=== PATIENT | male | born 1955 | race Caucasian/White ===

== ENCOUNTER 2021-12-24 14:52 | Inpatient (IN) ==
--- NOTE | 2021-12-24 15:03 | DR.ABDMALE ---
HPI Time seen Time Seen by Provider: 12/24/21 15:02 Complaint Chief Complaint Doctors Comments: 66 y/o male , currently an inmate, brought in for evaluation. Has had recurrent abdominal pain, with nausea and vomiting, over the past 4-5 days. Pain is sharp, cramping, diffuse of the abdomen, does not r adiate. Pain is intermittent. Nothnig makes it better, nothing makes it worse. Having nausea, with vomiting. Moved bowels small amount yesterday. No fever, having some chills. Denies URI symptoms, no urinary complaints. + h/o prior bowel surgeries with subsequent h/o bowel obstructions. COVID-19 Coronavirus risk:travel/contact w/high risk person: No Has patient experienced Coronavirus symptoms: No Reviewed Nurses Notes Review: Yes Source History provided by:: patient Mode of arrival Mode of Arrival: Wheelchair PMH PM Past Medical History: No Past Surgical History Comment: Hernia repair Family History History of Family Medical Conditions: No Social History Does patient currently use any type of tobacco product: No Does any household member use tobacco: No Do you use any recreational Drugs:: No Travel Risk Coronavirus risk:travel/contact w/high risk person: No Has patient experienced Coronavirus symptoms: No ROS Review of Systems Constitutional: Chills Eyes: No Symptoms Reported ENTM: No Symptoms Reported Respiratoy: No Symptoms Reported Cardiovascular: No Symptoms Reported Gastrointestinal/Abdominal: Abdominal Pain, Nausea and Vomiting Genitourinary: No Symptoms Reported Neurological: No Symptoms Reported Musculoskeletal: No Symptoms Reported Integumentary: No Symptoms Reported Hematologic/Lymphatic: No Symptoms Reported Psychiatric: No Symptoms Reported All Other Systems: Reviewed and Negative PE Vital Signs Vital Signs: Temp Pulse Resp BP Pulse Ox 12/24/21 17:00 98.2 F 87 17 145/84 99 12/24/21 15:28 18 12/24/21 14:55 98.2 F 98 H 18 166/99 98 General Limitations: No Limitations General Appearance: Alert and In No Apparent Distress Head Head Exam: Normal Inspection Eyes Eye exam: Normal Appearance, PERRL and EOMI ENT ENT Exam: Normal Exam and Mucous Membranes Moist Neck Neck Exam: Normal Inspection and Full ROM Chest Chest Inspection: Normal Inspection Respiratory Respiratory Exam: Normal Lung Sounds Bilat; negative Accessory Muscle Use and Respiratory Distress Respiratory Exam: Bilateral: Clear to Auscultation Cardiovascular Cardiovascular Exam: Regular Rate, Normal Rhythm and Normal Heart Sounds Abdominal Exam Abdominal Exam: Soft, Distention and Tenderness (LLQ > all other quadrants. + degree of rebound and guarding of LLQ. + increased tympany to percussion.) Back Back Exam: Normal Inspection Extremeties Extremities Exam: Normal Inspection, Full ROM and Tenderness; negative Edema Neurologic Neurological Exam: Alert, Oriented X3 and CN II-XII Intact Psychiatric Psychiatric Exam: Normal Affect Skin Skin Exam: Warm and Dry MDM Differential Diagnosis Differential Diagnosis: Appendicitis, Bowel Obstruction, Diverticular disease and Ischemic Bowel Other differential diagnosis: perforated viscus COURSE Treatment Treatment: Pt with abdominal pain, N/V. Exam concerning for possible SBO, perforation and/or diverticular disease. 1749 - Labs acceptable. CT of the abd/pelvis with distended loops of bowel. Presentation c/w SBO. Will admit to general surgery, Dr Mortensen. Will place NG tube to decompress bowel. ROR Labs Reviewed Laboratory Results Reviewed?: Yes Result Diagrams: 12/24/21 15:10 12/24/21 15:10 Laboratory: WBC 7.5 X10^3/uL (3.6-10.0) 12/24/21 15:10 RBC 5.43 X10^6/uL (4.7-6.0) 12/24/21 15:10 Hgb 15.8 g/dL (13.5-18.0) 12/24/21 15:10 Hct 47.6 % (42.0-54.0) 12/24/21 15:10 MCV 87.7 fL (80.0-100.0) 12/24/21 15:10 MCH 29.1 pg (27.0-34.0) 12/24/21 15:10 MCHC 33.2 g/dL (33.0-35.0) 12/24/21 15:10 RDW 14.6 % (11.6-16.5) 12/24/21 15:10 Plt Count 357 X10^3/uL (150.0-450.0) 12/24/21 15:10 MPV 7.4 fL (7.4-11.0) 12/24/21 15:10 Neut % (Auto) 59.2 % (42.0-75.0) 12/24/21 15:10 Lymph % (Auto) 28.7 % (21.0-51.0) 12/24/21 15:10 [place] % (Auto) 11.1 % (0.0-13.0) 12/24/21 15:10 Eos % (Auto) 0.8 % (0.9-2.9) L 12/24/21 15:10 Baso % (Auto) 0.2 % (0.2-1.0) 12/24/21 15:10 Neut # (Auto) 4.4 x10^3/uL (2.2-4.8) 12/24/21 15:10 Lymph # (Auto) 2.1 X10^3/uL (1.3-2.9) 12/24/21 15:10 [place] # (Auto) 0.8 x10^3/uL (0.3-0.8) 12/24/21 15:10 Eos # (Auto) 0.1 x10^3/uL (0.0-0.2) 12/24/21 15:10 Baso # (Auto) 0.0 X10^3/uL (0.0-0.1) 12/24/21 15:10 Absolute Nucleated RBC 0.1 /100WBC 12/24/21 15:10 Sodium 140 mmol/L (136-145) 12/24/21 15:10 Corrected Sodium 141 mmol/L (136-145) 12/24/21 15:10 Potassium 3.8 mmol/L (3.5-5.1) 12/24/21 15:10 Chloride 102 mmol/L (98-107) 12/24/21 15:10 Carbon Dioxide 27.5 mmol/L (21-32) 12/24/21 15:10 BUN 12 mg/dL (7-18) 12/24/21 15:10 Creatinine 1.12 mg/dL (0.70-1.30) 12/24/21 15:10 Est GFR (MDRD) Af Amer > 60 (>60) 12/24/21 15:10 Est GFR (MDRD) Non-Af > 60 (>60) 12/24/21 15:10 Glucose 133 mg/dL (65-99) H 12/24/21 15:10 Calcium 8.5 mg/dL (8.5-10.1) 12/24/21 15:10 Corrected Calcium TNP 12/24/21 15:10 Total Bilirubin 0.60 mg/dL (0.2-1.0) 12/24/21 15:10 AST 28 Units/L (15-37) 12/24/21 15:10 ALT 74 Units/L (12-78) 12/24/21 15:10 Alkaline Phosphatase 94 Units/L (46-116) 12/24/21 15:10 Total Protein 8.1 g/dL (6.4-8.2) 12/24/21 15:10 Albumin 3.8 g/dL (3.4-5.0) 12/24/21 15:10 Globulin 4.3 g/dL (2.5-4.5) 12/24/21 15:10 Albumin/Globulin Ratio 0.9 Ratio (1.1-2.1) L 12/24/21 15:10 Lipase 56 Units/L (73-393) L 12/24/21 15:10 Specimen Type Clean catch urine 12/24/21 17:28 Urine Color Yellow (YELLOW) 12/24/21 17:28 Urine Appearance Clear (CLEAR) 12/24/21 17:28 Urine pH 6.0 (5.0 - 8.0) 12/24/21 17:28 Ur Specific [place] 1.020 (1.000-1.030) 12/24/21 17:28 Urine Protein 2+ (NEGATIVE) 12/24/21 17:28 Urine Glucose (UA) Negative (NEGATIVE) 12/24/21 17:28 Urine Ketones 1+ (NEGATIVE) 12/24/21 17:28 Urine Occult Blood 1+ (NEGATIVE) 12/24/21 17:28 Urine Nitrite Negative (NEGATIVE) 12/24/21 17:28 Urine Bilirubin Negative (NEGATIVE) 12/24/21 17:28 Urine Urobilinogen Normal (NORMAL) 12/24/21 17:28 Ur Leukocyte Esterase Negative (NEGATIVE) 12/24/21 17:28 Urine RBC 3-5 /HPF (0-3) A 12/24/21 17:28 Urine WBC None seen /HPF (0-5) 12/24/21 17:28 Ur Squamous Epith Cells Rare /HPF (NEGATIVE) 12/24/21 17:28 Urine Bacteria Trace /HPF (NEGATIVE) 12/24/21 17:28 Urine Mucus Rare /HPF (NEGATIVE) 12/24/21 17:28 Ur Culture Indicated? No/not indicated 12/24/21 17:28 SARS CoV-2 RNA Rapid BECKY Negative (NEGATIVE) 12/24/21 17:38 XRAY XRAY Interpreted by: Both X-ray Results: + distended loops of bowel with air fluid levels. Opioid Opioid Risk Tool Age (Maxi box if 16-45): No History of Preadolescent Sexual Abuse: No Total: 0 Total Score Risk Category: Low Risk Copyright: Roderick TORRES predicting aberrant behaviors Diagnosis Discharge Problem: Small bowel obstruction
[2021-12-24] MEDS ORDERED: TORADOL 30 MG VIAL IVP ONE (15:08)
[2021-12-24] MEDS ORDERED: NS 1,000 ML IV 1,000 ML IV ONE (15:08)
[2021-12-24] MEDS ORDERED: ZOFRAN INJ 4 MG VIAL IVP ONE (15:08)
[2021-12-24] MEDS ORDERED: ZOFRAN INJ 4 MG VIAL ONE (15:14)
[2021-12-24] MEDS ORDERED: NS 1,000 ML IV 1,000 ML ONE (15:14)
[2021-12-24] MEDS ORDERED: TORADOL 30 MG VIAL ONE (15:25)
[2021-12-24 15:49] LABS: BASOPHILS % (AUTO) 0.2 % (0.2-1.0); EOSINOPHILS # (AUTO) 0.1 x10^3/uL (0.0-0.2); EOSINOPHILS % (AUTO) 0.8 % (0.9-2.9); HEMATOCRIT 47.6 % (42.0-54.0); HEMOGLOBIN 15.8 g/dL (13.5-18.0); LYMPHOCYTES # (AUTO) 2.1 X10^3/uL (1.3-2.9); LYMPHOCYTES % (AUTO) 28.7 % (21.0-51.0); MEAN CORPUSCULAR HEMOGLOBIN 29.1 pg (27.0-34.0); MEAN CORPUSCULAR HGB CONC 33.2 g/dL (33.0-35.0); MEAN CORPUSCULAR VOLUME 87.7 fL (80.0-100.0); MEAN PLATELET VOLUME 7.4 fL (7.4-11.0); MONOCYTES # (AUTO) 0.8 x10^3/uL (0.3-0.8); MONOCYTES % (AUTO) 11.1 % (0.0-13.0); NEUTROPHILS # (AUTO) 4.4 x10^3/uL (2.2-4.8); NEUTROPHILS % (AUTO) 59.2 % (42.0-75.0); RED BLOOD COUNT 5.43 X10^6/uL (4.7-6.0); RED CELL DISTRIBUTION WIDTH 14.6 % (11.6-16.5); WHITE BLOOD COUNT 7.5 X10^3/uL (3.6-10.0)
[2021-12-24 16:03] LABS: ALANINE AMINOTRANSFERASE 74 Units/L (12-78); ALBUMIN 3.8 g/dL (3.4-5.0); ALKALINE PHOSPHATASE 94 Units/L (46-116); ASPARTATE AMINO TRANSFERASE 28 Units/L (15-37); BLOOD UREA NITROGEN 12 mg/dL (7-18); CALCIUM 8.5 mg/dL (8.5-10.1); CARBON DIOXIDE 27.5 mmol/L (21-32); CHLORIDE 102 mmol/L (98-107); COR NA(FOR HYPERGLY) 141 mmol/L (136-145); CREATININE 1.12 mg/dL (0.70-1.30); LIPASE 56 Units/L (73-393); SODIUM 140 mmol/L (136-145); TOTAL PROTEIN 8.1 g/dL (6.4-8.2); eGFR NON BLACK RACES > 60 (>60)
--- NOTE | 2021-12-24 17:42 | CT ---
HISTORYAbdominal pain with nausea and vomiting x5 days.STUDYABDOMEN/PELVIS WITH CONCOMPARISONNoneTECHNIQUEAxial CT images of the abdomen and pelvis were obtained after the administration of IV contrast and reformatted into coronal and sagittal planes for further evaluation.Radiation dose: 1585.10 mGy-cm total DLPFINDINGSLung bases are clear.Stomach appears normal.Diffuse fatty infiltration of the liver.Spleen, pancreas and adrenal glands are unremarkable.IVC filter in place.Gallbladder appears normal with no biliary dilatation.Homogeneous enhancement of the kidneys without hydronephrosis or hydroureter.Unremarkable appearance of the urinary bladder.Imaged reproductive structures are unremarkable.Colonic diverticulosis without diverticulitis.Mildly widened gas and fluid-filled bowel loops in the left upper quadrant to the mid abdomen.No transition from dilated to decompressed small bowel to suggest a mechanical obstruction.No evidence of acute appendicitis.No pneumoperitoneum.No significant fluid collection.No adenopathy.No acute osseous abnormality.IMPRESSION1. Mildly widened gas and fluid-filled bowel loops in the left upper quadrant to the mid abdomen. No transition from dilated to decompressed small bowel to suggest a mechanical obstruction. Findings could represent a nonspecific enteritis.2. Diffuse fatty infiltration of the liver.3. Colonic diverticulosis without diverticulitis.Electronically signed by: Fernando Elizondo (Dec 24, 2021 17:40:38)
[2021-12-24 17:54] LABS: BILIRUBIN,URINE NEGATIVE (NEGATIVE); BLOOD/HEMOGLOBIN,URINE 1+ (NEGATIVE); GLUCOSE, URINE NEGATIVE (NEGATIVE); KETONES,URINE 1+ (NEGATIVE); LEUKOCYTE ESTERASE ,URINE NEGATIVE (NEGATIVE); NITRITES,URINE NEGATIVE (NEGATIVE); PROTEIN,URINE 2+ (NEGATIVE); UROBILINOGEN,URINE NORMAL (NORMAL)
[2021-12-24 18:14] LABS: APPEARANCE,URINE CLEAR (CLEAR); BACTERIA,URINE TRACE /HPF (NEGATIVE); COLOR,URINE YELLOW (YELLOW); SQUAMOUS EPITHELIAL CELL,UR RARE /HPF (NEGATIVE)
[2021-12-24] MEDS ORDERED: XYLOCAINE VISCOUS ONE (18:53)
--- NOTE | 2021-12-24 18:53 | RAD ---
HISTORYNG TUBE PLACEMENTSTUDYKUB x-ray one viewCOMPARISONCT 12/24/2021FINDINGSNasogastric tube tip appears to be in the region of the body of the stomach. IVC filter is seen in the right-side of the abdomen. Kidneys are excreting contrast from prior CT exam. Persistent dilated small bowel loops are seen with mild colonic air.IMPRESSIONNasogastric tube tip appears to be in the region of the body of the stomach.Electronically signed by: Teto Lorenz (Dec 24, 2021 18:51:35)
[2021-12-24] MEDS ORDERED: XYLOCAINE VISCOUS MT ONE (20:00)
[2021-12-24] MEDS: D5 1/2 NS 1,000 ML 1,000 ML IV SCH (20:12)
[2021-12-24] MEDS: PROTONIX INJ 40 MG VIAL IVP SCH (20:19)
[2021-12-24] MEDS: LOVENOX INJ 40 MG SYR SC SCH (20:21)
[2021-12-24] MEDS: MORPHINE SULFATE INJ 4 MG IVP PRN (23:13)
[2021-12-25] MEDS: D5 1/2 NS 1,000 ML 1,000 ML IV SCH ×4 (02:50→22:15)
[2021-12-25] MEDS: MORPHINE SULFATE INJ 4 MG IVP PRN ×3 (04:15→16:10)
[2021-12-25 06:18] VITALS: BMI 38.0
[2021-12-25 06:30] LABS: BASOPHILS # (AUTO) 0.1 X10^3/uL (0.0-0.1); BASOPHILS % (AUTO) 1.1 % (0.2-1.0); EOSINOPHILS # (AUTO) 0.1 x10^3/uL (0.0-0.2); EOSINOPHILS % (AUTO) 1.6 % (0.9-2.9); HEMATOCRIT 43.4 % (42.0-54.0); HEMOGLOBIN 14.5 g/dL (13.5-18.0); LYMPHOCYTES # (AUTO) 1.8 X10^3/uL (1.3-2.9); LYMPHOCYTES % (AUTO) 23.4 % (21.0-51.0); MEAN CORPUSCULAR HEMOGLOBIN 29.3 pg (27.0-34.0); MEAN CORPUSCULAR HGB CONC 33.5 g/dL (33.0-35.0); MEAN CORPUSCULAR VOLUME 87.4 fL (80.0-100.0); MEAN PLATELET VOLUME 7.6 fL (7.4-11.0); MONOCYTES # (AUTO) 0.9 x10^3/uL (0.3-0.8); MONOCYTES % (AUTO) 11.6 % (0.0-13.0); NEUTROPHILS # (AUTO) 4.8 x10^3/uL (2.2-4.8); NEUTROPHILS % (AUTO) 62.3 % (42.0-75.0); RED BLOOD COUNT 4.96 X10^6/uL (4.7-6.0); RED CELL DISTRIBUTION WIDTH 14.5 % (11.6-16.5); WHITE BLOOD COUNT 7.7 X10^3/uL (3.6-10.0)
[2021-12-25 06:44] LABS: ALANINE AMINOTRANSFERASE 57 Units/L (12-78); ALBUMIN 3.1 g/dL (3.4-5.0); ALKALINE PHOSPHATASE 78 Units/L (46-116); ASPARTATE AMINO TRANSFERASE 25 Units/L (15-37); BLOOD UREA NITROGEN 11 mg/dL (7-18); CALCIUM 7.9 mg/dL (8.5-10.1); CARBON DIOXIDE 27.1 mmol/L (21-32); CHLORIDE 106 mmol/L (98-107); COR CA(FOR HYPOALB) 8.6 mg/dL (8.5-10.1); COR NA(FOR HYPERGLY) 142 mmol/L (136-145); CREATININE 0.96 mg/dL (0.70-1.30); SODIUM 141 mmol/L (136-145); TOTAL PROTEIN 6.6 g/dL (6.4-8.2); eGFR NON BLACK RACES > 60 (>60)
--- NOTE | 2021-12-25 06:50 | RAD ---
HISTORYSBOSTUDYACUTE ABDOMEN SERIESCOMPARISONCT abdomen and pelvis and KUB from 1 day prior.TECHNIQUEAcute abdomen series, 1 image of the chest and 4 images of the abdomenFINDINGSCardiac silhouette is enlarged. Low lung volumes. No discernible consolidation or segmental lung collapse. No definite pleural effusion or pneumothorax. Soft tissue attenuation limits evaluation.IVC filter in situ. NG tube in good position with the tip near the pylorus. Similar appearing bowel gas pattern with mildly dilated gas-filled small bowel measuring up to 6.4 cm in the left glenny abdomen. There is stool and gas in the colon. No definite pneumatosis, free air, or portal venous gas. No suspicious abdominal calcifications.IMPRESSIONDistended gas-filled small bowel appears similar to prior and may represent partial small bowel obstruction, enteritis, or ileus. There is gas and stool in the colon.Electronically signed by: Hans Richards (Dec 25, 2021 06:48:32)
[2021-12-25] MEDS: LOVENOX INJ 40 MG SYR SC SCH (08:43)
[2021-12-25] MEDS: PROTONIX INJ 40 MG VIAL IVP SCH (08:43)
--- NOTE | 2021-12-25 09:19 | DR.PROGNOT ---
Hospital Progress Notes - Progress Note for Day of: Progress Note Date: 12/25/21 - Chief Complaint Chief Complaint: still having abdominal pain with nausea .. vomited small amount this am . abdominal x Ray still showing SBO .. - Past Medical Family Social History Past Med/Fam/Surg Hx: No changes since H&P Allergies: Allergies No Known Drug Allergies Allergy (Verified 12/24/21 15:03) - Review Of Systems ROS: No change since H&P - Vital Signs Vital Signs: Temperature 98.3 F Pulse Rate [Brachial] 60 Pulse Rate [Bilateral Brachial 72 ] Pulse Rate 87 Respiratory Rate 20 Blood Pressure [Right Arm] 143/79 Blood Pressure 145/84 O2 Sat by Pulse Oximetry 95 - Physical Exam Oriented: Normal Eyes: Normal Ear: Normal Nose: Normal Respiratory: Normal Cardiovascular: Normal : Normal GI:Auscultation: Decreased GI: Tenderness: Diffuse (distended abdomen , tympanic .. BS hypoactive .) Speech Pattern: Clear, Appropriate - Laboratory and Diagnostics Result Diagrams: 12/25/21 05:22 12/25/21 05:22 Labs: Laboratory WBC 7.7 X10^3/uL (3.6-10.0) 12/25/21 05:22 RBC 4.96 X10^6/uL (4.7-6.0) 12/25/21 05:22 Hgb 14.5 g/dL (13.5-18.0) 12/25/21 05:22 Hct 43.4 % (42.0-54.0) 12/25/21 05:22 MCV 87.4 fL (80.0-100.0) 12/25/21 05:22 MCH 29.3 pg (27.0-34.0) 12/25/21 05:22 MCHC 33.5 g/dL (33.0-35.0) 12/25/21 05:22 RDW 14.5 % (11.6-16.5) 12/25/21 05:22 Plt Count 303 X10^3/uL (150.0-450.0) 12/25/21 05:22 MPV 7.6 fL (7.4-11.0) 12/25/21 05:22 Neut % (Auto) 62.3 % (42.0-75.0) 12/25/21 05:22 Lymph % (Auto) 23.4 % (21.0-51.0) 12/25/21 05:22 [place] % (Auto) 11.6 % (0.0-13.0) 12/25/21 05:22 Eos % (Auto) 1.6 % (0.9-2.9) 12/25/21 05:22 Baso % (Auto) 1.1 % (0.2-1.0) H 12/25/21 05:22 Neut # (Auto) 4.8 x10^3/uL (2.2-4.8) 12/25/21 05:22 Lymph # (Auto) 1.8 X10^3/uL (1.3-2.9) 12/25/21 05:22 [place] # (Auto) 0.9 x10^3/uL (0.3-0.8) H 12/25/21 05:22 Eos # (Auto) 0.1 x10^3/uL (0.0-0.2) 12/25/21 05:22 Baso # (Auto) 0.1 X10^3/uL (0.0-0.1) 12/25/21 05:22 Absolute Nucleated RBC 0.1 /100WBC 12/25/21 05:22 Sodium 141 mmol/L (136-145) 12/25/21 05:22 Corrected Sodium 142 mmol/L (136-145) 12/25/21 05:22 Potassium 3.8 mmol/L (3.5-5.1) 12/25/21 05:22 Chloride 106 mmol/L (98-107) 12/25/21 05:22 Carbon Dioxide 27.1 mmol/L (21-32) 12/25/21 05:22 BUN 11 mg/dL (7-18) 12/25/21 05:22 Creatinine 0.96 mg/dL (0.70-1.30) 12/25/21 05:22 Est GFR (MDRD) Af Amer > 60 (>60) 12/25/21 05:22 Est GFR (MDRD) Non-Af > 60 (>60) 12/25/21 05:22 Glucose 145 mg/dL (65-99) H 12/25/21 05:22 Calcium 7.9 mg/dL (8.5-10.1) L 12/25/21 05:22 Corrected Calcium 8.6 mg/dL (8.5-10.1) 12/25/21 05:22 Total Bilirubin 0.50 mg/dL (0.2-1.0) 12/25/21 05:22 AST 25 Units/L (15-37) 12/25/21 05:22 ALT 57 Units/L (12-78) 12/25/21 05:22 Alkaline Phosphatase 78 Units/L (46-116) 12/25/21 05:22 Total Protein 6.6 g/dL (6.4-8.2) 12/25/21 05:22 Albumin 3.1 g/dL (3.4-5.0) L 12/25/21 05:22 Globulin 3.5 g/dL (2.5-4.5) 12/25/21 05:22 Albumin/Globulin Ratio 0.9 Ratio (1.1-2.1) L 12/25/21 05:22 Lipase 56 Units/L (73-393) L 12/24/21 15:10 Specimen Type Clean catch urine 12/24/21 17:28 Urine Color Yellow (YELLOW) 12/24/21 17:28 Urine Appearance Clear (CLEAR) 12/24/21 17:28 Urine pH 6.0 (5.0 - 8.0) 12/24/21 17:28 Ur Specific [place] 1.020 (1.000-1.030) 12/24/21 17:28 Urine Protein 2+ (NEGATIVE) 12/24/21 17:28 Urine Glucose (UA) Negative (NEGATIVE) 12/24/21 17:28 Urine Ketones 1+ (NEGATIVE) 12/24/21 17:28 Urine Occult Blood 1+ (NEGATIVE) 12/24/21 17:28 Urine Nitrite Negative (NEGATIVE) 12/24/21 17:28 Urine Bilirubin Negative (NEGATIVE) 12/24/21 17:28 Urine Urobilinogen Normal (NORMAL) 12/24/21 17:28 Ur Leukocyte Esterase Negative (NEGATIVE) 12/24/21 17:28 Urine RBC 3-5 /HPF (0-3) A 12/24/21 17:28 Urine WBC None seen /HPF (0-5) 12/24/21 17:28 Ur Squamous Epith Cells Rare /HPF (NEGATIVE) 12/24/21 17:28 Urine Bacteria Trace /HPF (NEGATIVE) 12/24/21 17:28 Urine Mucus Rare /HPF (NEGATIVE) 12/24/21 17:28 Ur Culture Indicated? No/not indicated 12/24/21 17:28 SARS CoV-2 RNA Rapid BECKY Negative (NEGATIVE) 12/24/21 17:38 - Assessment and Plan 1: partial SBO . abdominal adhesions . same plan , NGT , IVF . repeat abdominal X Ray - Problem Patient Problems: Patient Problems Small bowel obstruction (Acute) K56.130
--- NOTE | 2021-12-25 15:30 | RAD ---
HISTORYSBOSTUDYKUBCOMPARISONNo ne availableTECHNIQUEAP supine and upright projections, 2 viewsFINDINGSEsophagogastric tube tip overlies the pyloric region of the stomach.Nonspecific moderate gaseous distension of colon.Elevation of the right diaphragm.IVC filter in place.IMPRESSION1. Nasogastric tube tip is in the pyloric region of the stomach.2. Nonspecific moderate gaseous distension of colon.Electronically signed by: Fernando Elizondo (Dec 25, 2021 15:29:23)
[2021-12-26] MEDS: MORPHINE SULFATE INJ 4 MG IVP PRN ×3 (02:12→13:03)
[2021-12-26] MEDS: D5 1/2 NS 1,000 ML 1,000 ML IV SCH ×3 (05:23→09:01)
--- NOTE | 2021-12-26 07:55 | RAD ---
HISTORYFOLLOW UP SBO, (NG TUBE HAS BEEN DC'D)STUDYKUBCOMPARISONKUB from 1 day prior.TECHNIQUEAbdomen KUB, 4 images.FINDINGSNG tube is no longer visualized and has been removed. There is similar appearance of gas-filled distended bowel including the colon. No definite pneumatosis, free air, or portal venous gas. IVC filter noted. Calcifications in the pelvis are likely phleboliths.IMPRESSIONSimilar appearance to prior of moderate dilated gas-filled bowel including colon. This is nonspecific but may represent ileus. NG tube has been removed.Electronically signed by: Hans Richards (Dec 26, 2021 07:54:02)
[2021-12-26] MEDS: LOVENOX INJ 40 MG SYR SC SCH (08:33)
[2021-12-26] MEDS: PROTONIX INJ 40 MG VIAL IVP SCH (08:34)
[2021-12-26 13:04] VITALS: BP 160/87
== END 2021-12-26 14:00 | disposition home or self-care (01) | DRG 390 ==
LOC: ER 14:52 → MED/SURG 18:25
PROVIDERS: ADMIT Surgery; ATTEND Surgery

== ENCOUNTER 2022-03-23 12:36 | Inpatient (IN) ==
[2022-03-23] MEDS ORDERED: NS 1,000 ML IV 1,000 ML IV ONE (12:47)
[2022-03-23] MEDS ORDERED: ZOFRAN INJ 4 MG VIAL ONE ×2 (12:57→15:19)
[2022-03-23] MEDS ORDERED: NS 1,000 ML IV 1,000 ML ONE (12:57)
[2022-03-23] MEDS ORDERED: ZOFRAN INJ 4 MG VIAL IVP ONE ×2 (13:09→15:21)
--- NOTE | 2022-03-23 13:21 | DR.ABDMALE ---
HPI Time seen Time Seen by Provider: 03/23/22 12:46 PCP Primary Care Physician: PIEDAD HPI comment HPI Comment: A 66 y/o male presenting with c/o nausea and vomiting onset since about 0930 hrs. this morning. There is abdominal cramps but no fever. He states that he has vomitted about 7 times so far today. He has had Ileus radiographically and had a surgical evaluation in the ED about a month ago but he has not followed up on outpt. basis as recommended by the surgeon. Complaint Chief Complaint:: PT ARRIVED TO ED AMBULATORY WITH C/O SUDDEN ONSET OF SEVERE INTERMITTENT CRAMPING PAIN INTO THE LEFT SIDE OF ABDOMEN THAT RADIATES INTO THE PERIUMBILICAL AREA THAT STARTED AROUND 9AM TODAY. PT HAS HAD 7 EPISODES OF VOMITING SINCE THIS MORNING AND STATES THAT PAIN IS WORSE WHEN HE VOMITING. STATES THAT HE HAD A NORMAL BOWEL MOVEMENT LAST YESTERDAY AFTERNOON. Self Treatment fo Chief Complaint: WAS GIVEN TORADOL 30MG IM [facility] AT 11:30 AM TODAY Source History provided by:: patient Mode of arrival Mode of Arrival: Ambulatory Timing Onset of Chief Complaint: 03/23/22 Came on: Gradually Duration How lon Duration: Hours Associated signs and symptoms Associated Signs and Symptoms: Nausea and Vomiting PMH PMH Past Medical History: Yes Past Medical History Comment: SMALL BOWEL OBSTRUCTIONS, HERNIAS, PULMONARY EMBOLI Past Surgical History: Yes Surgical History: Abdominal Surgery and Bowel Resection Past Surgical History Comment: HERNIA REPAIR, BOWEL RESECTION X 4 Family History History of Family Medical Conditions: Yes Family Medical History: Cancer, ID and Coronary Artery Disease Social History Does patient currently use any type of tobacco product: No Have you used tobacco products in the last 12 months: No Type of Tobacco Use: None Does any household member use tobacco: No Alcohol Use: None Do you use any recreational Drugs:: No Lives With: Other Lives Where: [facility] Infectious screening In the last 2 months have you had wt loss of >10#?: NO Have you had fever, night sweats or hemotysis?: No Have you traveled outside the country in the last 6 months?: No Isolation: Standard ROS Review of Systems Constitutional: No Symptoms Reported Eyes: No Symptoms Reported ENTM: No Symptoms Reported Respiratoy: No Symptoms Reported Cardiovascular: No Symptoms Reported Gastrointestinal/Abdominal: Nausea and Vomiting Genitourinary: No Symptoms Reported Neurological: No Symptoms Reported Musculoskeletal: No Symptoms Reported Integumentary: No Symptoms Reported Hematologic/Lymphatic: No Symptoms Reported Endocrine: No Symptoms Reported Psychiatric: No Symptoms Reported PE Vital Signs Vital Signs: Temp Pulse Resp BP BP Pulse Ox 03/23/22 12:44 98.2 F 119 H 22 131/99 95 03/09/22 18:49 111/72 12/26/21 12:00 160/87 General Limitations: No Limitations General Appearance: Alert Head Head Exam: Normal Inspection, Atraumatic and Normocephalic Eyes Eye exam: Normal Appearance and EOMI ENT ENT Exam: Normal Exam, Normal Oropharynx, Normal External Ear Exam and Mucous Membranes Moist Neck Neck Exam: Normal Inspection, Full ROM and Trachea Midline Chest Chest Inspection: Normal Inspection and Symmetric Chest Wall Rise Respiratory Respiratory Exam: Normal Lung Sounds Bilat Cardiovascular Cardiovascular Exam: Regular Rate and Normal Rhythm Abdominal Exam Abdominal Exam: Normal Inspection, Normal Bowel Sounds, Soft and Other (Distended abdomen) Abdominal Tenderness: negative RUQ, RLQ, LUQ, LLQ, Epigastrium, Suprapubic, Diffuse, Mild, Moderate and Severe Rectal Rectal Exam: Deferred Back Back Exam: Normal Inspection Extremeties Extremities Exam: Normal Inspection Exam: Male: Deferred Neurologic Neurological Exam: Alert and Oriented X3 Psychiatric Psychiatric Exam: Normal Affect and Normal Mood Skin Skin Exam: Intact COURSE Reevaluation 1st: Resolved Education/Counseling Education/Counseling: Patient, Education and Counseling Educated On: Treatment, Diagnosis, Prognosis and Needs for Follow Up ROR Labs Reviewed Laboratory Results Reviewed?: Yes Result Diagrams: 03/23/22 13:07 03/23/22 13:07 Laboratory: WBC 11.6 X10^3/uL (3.6-10.0) H 03/23/22 13:07 RBC 5.50 X10^6/uL (4.7-6.0) 03/23/22 13:07 Hgb 16.6 g/dL (13.5-18.0) 03/23/22 13:07 Hct 47.5 % (42.0-54.0) 03/23/22 13:07 MCV 86.3 fL (80.0-100.0) 03/23/22 13:07 MCH 30.1 pg (27.0-34.0) 03/23/22 13:07 MCHC 34.9 g/dL (33.0-35.0) 03/23/22 13:07 RDW 14.4 % (11.6-16.5) 03/23/22 13:07 Plt Count 381 X10^3/uL (150.0-450.0) 03/23/22 13:07 MPV 7.4 fL (7.4-11.0) 03/23/22 13:07 Neut % (Auto) 77.8 % (42.0-75.0) H 03/23/22 13:07 Lymph % (Auto) 13.2 % (21.0-51.0) L 03/23/22 13:07 [place] % (Auto) 7.9 % (0.0-13.0) 03/23/22 13:07 Eos % (Auto) 0.7 % (0.9-2.9) L 03/23/22 13:07 Baso % (Auto) 0.4 % (0.2-1.0) 03/23/22 13:07 Neut # (Auto) 9.0 x10^3/uL (2.2-4.8) H 03/23/22 13:07 Lymph # (Auto) 1.5 X10^3/uL (1.3-2.9) 03/23/22 13:07 [place] # (Auto) 0.9 x10^3/uL (0.3-0.8) H 03/23/22 13:07 Eos # (Auto) 0.1 x10^3/uL (0.0-0.2) 03/23/22 13:07 Baso # (Auto) 0.0 X10^3/uL (0.0-0.1) 03/23/22 13:07 Absolute Nucleated RBC 0.4 /100WBC 03/23/22 13:07 Sodium 139 mmol/L (136-145) 03/23/22 13:07 Corrected Sodium 141 mmol/L (136-145) 03/23/22 13:07 Potassium 4.2 mmol/L (3.5-5.1) 03/23/22 13:07 Chloride 101 mmol/L (98-107) 03/23/22 13:07 Carbon Dioxide 27.8 mmol/L (21-32) 03/23/22 13:07 BUN 11 mg/dL (7-18) 03/23/22 13:07 Creatinine 1.33 mg/dL (0.70-1.30) H 03/23/22 13:07 Est GFR (MDRD) Af Amer > 60 (>60) 03/23/22 13:07 Est GFR (MDRD) Non-Af 57 (>60) L 03/23/22 13:07 Glucose 166 mg/dL (65-99) H 03/23/22 13:07 Calcium 9.1 mg/dL (8.5-10.1) 03/23/22 13:07 Corrected Calcium TNP 03/23/22 13:07 Total Bilirubin 0.90 mg/dL (0.2-1.0) 03/23/22 13:07 AST 23 Units/L (15-37) 03/23/22 13:07 ALT 72 Units/L (12-78) 03/23/22 13:07 Alkaline Phosphatase 114 Units/L (46-116) 03/23/22 13:07 Total Protein 7.8 g/dL (6.4-8.2) 03/23/22 13:07 Albumin 3.9 g/dL (3.4-5.0) 03/23/22 13:07 Globulin 3.9 g/dL (2.5-4.5) 03/23/22 13:07 Albumin/Globulin Ratio 1.0 Ratio (1.1-2.1) L 03/23/22 13:07 Other Results Comments: I had the nurse call Dr. Joseph for me and I discussed with him the pt's. presentation and laboratory and radiographic findiings. Dr. Joseph advised to place/admit the pt. to his service and he would come by to see him. Opioid Opioid Risk Tool Age (Maxi box if 16-45): No History of Preadolescent Sexual Abuse: No Total: 0 Total Score Risk Category: Low Risk Copyright: Vaughn LR predicting aberrant behaviors Diagnosis Discharge Problem: Small bowel obstruction ADDITIONAL NOTES Additional Notes Additional Notes: Name: Kayden ANDREWS#: [id number]: [id number] : 1955Sex: MLocation: ER Order Number(s): [id number](s):ACUTE ABDOMEN SERIES Ordering Physician: SAYRA GALVAN Primary Care: NFD,None Service Date: 03/23/22 Service Time: 1247 HISTORY PT ARRIVED TO ED AMBULATORY WITH C/O SUDDEN ONSET OF SEVERE INTERMITTENT CRAMPING PAIN INTO THE LEFT SIDE OF ABDOMEN THAT RADIATES INTO THE PERIUMBILICAL AREA THAT STARTED AROUND 9AM TODAY..brNausea, Vomitng Relevant Clinical Information STUDY ACUTE ABDOMEN SERIES COMPARISON FINDINGS The trachea is midline. The cardiac silhouette is [unremarkable]. [The lungs are clear without focal mass or consolidation. There is no effusion or pneumothorax.] [The bony thorax is unremarkable]. There is abnormal dilation of the small bowel loops suggestive of small-bowel obstruction. There is also gas in the large bowel although not as prominent as the small bowel. No free air is detected. No pathological soft tissue mass or calcification can be observed. The bony structures are grossly intact. IMPRESSION 1. [No acute cardiopulmonary disease.] 2. [Dilated small bowel suggestive small bowel obstruction.] Electronically signed by: Ayan Jade (March 23, 2022 14:48:41) Report Electronically signed: 03/23/22 1444 CC: Sayra Galvan
[2022-03-23 13:26] LABS: ALANINE AMINOTRANSFERASE 72 Units/L (12-78); ALBUMIN 3.9 g/dL (3.4-5.0); ALKALINE PHOSPHATASE 114 Units/L (46-116); ASPARTATE AMINO TRANSFERASE 23 Units/L (15-37); BLOOD UREA NITROGEN 11 mg/dL (7-18); CALCIUM 9.1 mg/dL (8.5-10.1); CARBON DIOXIDE 27.8 mmol/L (21-32); CHLORIDE 101 mmol/L (98-107); COR NA(FOR HYPERGLY) 141 mmol/L (136-145); CREATININE 1.33 mg/dL (0.70-1.30); SODIUM 139 mmol/L (136-145); TOTAL PROTEIN 7.8 g/dL (6.4-8.2); eGFR NON BLACK RACES 57 (>60)
[2022-03-23 13:30] LABS: BASOPHILS % (AUTO) 0.4 % (0.2-1.0); EOSINOPHILS # (AUTO) 0.1 x10^3/uL (0.0-0.2); EOSINOPHILS % (AUTO) 0.7 % (0.9-2.9); HEMATOCRIT 47.5 % (42.0-54.0); HEMOGLOBIN 16.6 g/dL (13.5-18.0); LYMPHOCYTES # (AUTO) 1.5 X10^3/uL (1.3-2.9); LYMPHOCYTES % (AUTO) 13.2 % (21.0-51.0); MEAN CORPUSCULAR HEMOGLOBIN 30.1 pg (27.0-34.0); MEAN CORPUSCULAR HGB CONC 34.9 g/dL (33.0-35.0); MEAN CORPUSCULAR VOLUME 86.3 fL (80.0-100.0); MEAN PLATELET VOLUME 7.4 fL (7.4-11.0); MONOCYTES # (AUTO) 0.9 x10^3/uL (0.3-0.8); MONOCYTES % (AUTO) 7.9 % (0.0-13.0); NEUTROPHILS % (AUTO) 77.8 % (42.0-75.0); RED CELL DISTRIBUTION WIDTH 14.4 % (11.6-16.5); WHITE BLOOD COUNT 11.6 X10^3/uL (3.6-10.0)
--- NOTE | 2022-03-23 14:49 | RAD ---
HISTORYPT ARRIVED TO ED AMBULATORY WITH C/O SUDDEN ONSET OF SEVERE INTERMITTENT CRAMPING PAIN INTO THE LEFT SIDE OF ABDOMEN THAT RADIATES INTO THE PERIUMBILICAL AREA THAT STARTED AROUND 9AM TODAY..brNausea, Vomitng Relevant Clinical InformationSTUDYACUTE ABDOMEN SERIESCOMPARISONFINDINGSThe trachea is midline. The cardiac silhouette is [unremarkable]. [The lungs are clear without focal mass or consolidation. There is no effusion or pneumothorax.] [The bony thorax is unremarkable].There is abnormal dilation of the small bowel loops suggestive of small-bowel obstruction. There is also gas in the large bowel although not as prominent as the small bowel. No free air is detected. No pathological soft tissue mass or calcification can be observed. The bony structures are grossly intact.IMPRESSION1. [No acute cardiopulmonary disease.]2. [Dilated small bowel suggestive small bowel obstruction.]Electronically signed by: Ayan Jade (March 23, 2022 14:48:41)
[2022-03-23] MEDS ORDERED: XYLOCAINE VISCOUS ONE (16:06)
[2022-03-23] MEDS ORDERED: ZOFRAN INJ 4 MG VIAL IVP PRN (16:57)
[2022-03-23] MEDS: LR 1,000 ML IV 1,000 ML IV SCH (17:59)
[2022-03-23] MEDS: ZOFRAN INJ 4 MG VIAL IVP PRN ×2 (19:33→23:32)
[2022-03-23] MEDS: DILAUDID INJ IVP PRN ×2 (20:20→23:32)
--- NOTE | 2022-03-23 21:18 | RAD ---
HISTORYNG TUBE PLACEMENT Relevant Clinical InformationSTUDYKUBCOMPARISONMay 2021FINDINGSEvaluation of the abdomen demonstrates a dilated small bowel loops suggestive of obstruction. There is a nasogastric tube with the tip in the gastric fundus. No pathological soft tissue mass or calcification can be observed. The bony structures are grossly intact.IMPRESSIONDilated small bowel loops suggesting obstruction.NG tube tip in gastric fundus.Electronically signed by: Carroll Levin (March 23, 2022 21:18:00)
--- NOTE | 2022-03-23 22:35 | DR.H&P ---
H&P History & Physical for Day of: H&P Date: 03/23/22 Chief Complaint Chief Complaint: Abdominal pain and distention, nausea and vomiting Allergies Allergies Allergy/AdvReac Type Severity Reaction Status Date / Time No Known Drug Allergies Allergy Verified 12/24/21 15:03 History of Present Illness History of Present Illness: This is a 66 year old male who is currently in the [place] [facility] system who presents with abdominal distension ,nausea and vomiting. He was evaluated in the emergency room with plain x-rays consistent with small bowel obstruction. He was admitted to our [facility] approximately two months ago with a diagnosis of small bowel obstruction which was treated with a nasogastric decompression and it resolved. S/P umbilical hernia repair many years ago which has been complicated by multiple bouts of small bowel obstruction and he has required at least 4 additional surgeries for bowel obstruction requiring lysis of adhesions and bow el resection . He has no other significant medical problems except for hypertension. Past Medical History Past Medical History: Hypertension Past Surgical History Surgical History: Abdominal Surgery and Bowel Resection Family History Family Medical History: Cancer, NM and Coronary Artery Disease Social History Does patient currently use any type of tobacco product: No Have you used tobacco products in the last 12 months: No Type of Tobacco Use: None Does any household member use tobacco: No Alcohol Use: None Drug Use: None Prescription drug monitoring program results: PDMP reviewed and no concerns identified Medications Home Medications: No Known Drug Allergies Allergy (Verified 12/24/21 15:03) CONTINUE taking the following medications fiber 1 tab PO BID 03/23/22 [History] hydrochlorothiazide 12.5 mg PO DAILY 03/23/22 [History] polyethylene glycol 3350 [Miralax] 17 g PO DAILY 03/23/22 [History] promethazine 25 mg PO DAILY PRN 03/23/22 [History] Labs Result Diagrams: 03/23/22 13:07 03/23/22 13:07 Labs: Laboratory WBC 11.6 X10^3/uL (3.6-10.0) H 03/23/22 13:07 RBC 5.50 X10^6/uL (4.7-6.0) 03/23/22 13:07 Hgb 16.6 g/dL (13.5-18.0) 03/23/22 13:07 Hct 47.5 % (42.0-54.0) 03/23/22 13:07 MCV 86.3 fL (80.0-100.0) 03/23/22 13:07 MCH 30.1 pg (27.0-34.0) 03/23/22 13:07 MCHC 34.9 g/dL (33.0-35.0) 03/23/22 13:07 RDW 14.4 % (11.6-16.5) 03/23/22 13:07 Plt Count 381 X10^3/uL (150.0-450.0) 03/23/22 13:07 MPV 7.4 fL (7.4-11.0) 03/23/22 13:07 Neut % (Auto) 77.8 % (42.0-75.0) H 03/23/22 13:07 Lymph % (Auto) 13.2 % (21.0-51.0) L 03/23/22 13:07 [place] % (Auto) 7.9 % (0.0-13.0) 03/23/22 13:07 Eos % (Auto) 0.7 % (0.9-2.9) L 03/23/22 13:07 Baso % (Auto) 0.4 % (0.2-1.0) 03/23/22 13:07 Neut # (Auto) 9.0 x10^3/uL (2.2-4.8) H 03/23/22 13:07 Lymph # (Auto) 1.5 X10^3/uL (1.3-2.9) 03/23/22 13:07 [place] # (Auto) 0.9 x10^3/uL (0.3-0.8) H 03/23/22 13:07 Eos # (Auto) 0.1 x10^3/uL (0.0-0.2) 03/23/22 13:07 Baso # (Auto) 0.0 X10^3/uL (0.0-0.1) 03/23/22 13:07 Absolute Nucleated RBC 0.4 /100WBC 03/23/22 13:07 Sodium 139 mmol/L (136-145) 03/23/22 13:07 Corrected Sodium 141 mmol/L (136-145) 03/23/22 13:07 Potassium 4.2 mmol/L (3.5-5.1) 03/23/22 13:07 Chloride 101 mmol/L (98-107) 03/23/22 13:07 Carbon Dioxide 27.8 mmol/L (21-32) 03/23/22 13:07 BUN 11 mg/dL (7-18) 03/23/22 13:07 Creatinine 1.33 mg/dL (0.70-1.30) H 03/23/22 13:07 Est GFR (MDRD) Af Amer > 60 (>60) 03/23/22 13:07 Est GFR (MDRD) Non-Af 57 (>60) L 03/23/22 13:07 Glucose 166 mg/dL (65-99) H 03/23/22 13:07 POC Glucose (mg/dL) 142 mg/dL (65-99) H 03/23/22 19:54 Calcium 9.1 mg/dL (8.5-10.1) 03/23/22 13:07 Corrected Calcium TNP 03/23/22 13:07 Total Bilirubin 0.90 mg/dL (0.2-1.0) 03/23/22 13:07 AST 23 Units/L (15-37) 03/23/22 13:07 ALT 72 Units/L (12-78) 03/23/22 13:07 Alkaline Phosphatase 114 Units/L (46-116) 03/23/22 13:07 Total Protein 7.8 g/dL (6.4-8.2) 03/23/22 13:07 Albumin 3.9 g/dL (3.4-5.0) 03/23/22 13:07 Globulin 3.9 g/dL (2.5-4.5) 03/23/22 13:07 Albumin/Globulin Ratio 1.0 Ratio (1.1-2.1) L 03/23/22 13:07 SARS-CoV-2 (PCR) Negative (NEGATIVE) 03/23/22 16:05 Review of Systems Constitutional: See HPI; denies Fever and Chills Eyes: No Symptoms Reported ENT: No Symptoms Reported Respiratory: No Symptoms Reported Cardiovascular: No Symptoms Reported Gastrointestinal: Nausea and Vomiting; denies Diarrhea Genitourinary: No Symptoms Reported Musculoskeletal: No Symptoms Reported Skin: No Symptoms Reported Neurological: No Symptoms Reported Physical Exam Vital Signs: Temperature 98.7 F Pulse Rate [Left Brachial] 83 Pulse Rate 119 Respiratory Rate 20 Blood Pressure [Left Arm] 113/79 Blood Pressure [Right Arm] 125/79 Blood Pressure 131/99 O2 Sat by Pulse Oximetry 95 Oriented: Normal, Time, Person and Place Eyes: Normal Ear: Normal Nose: Normal Throat: Normal Respiratory: Clear Throughout Cardiovascular: Normal : Normal Auscultation: Bowel Sounds: Absent Palpation: Other (distended) Tenderness: Diffuse and Other (no evidence ) Skin: Normal Musculoskeletal: Normal Psychiatric: Normal Mood Description: Calm Affect: Normal Speech Pattern: Clear Assessment/Plan (1) Small bowel obstruction: Status: Acute Plan: Nasogastric tube to low wall suction. Repeat labs and abdominal Series in the A. M. If not resolving may require laparotomy.
[2022-03-24] MEDS: LR 1,000 ML IV 1,000 ML IV SCH ×2 (01:14→08:50)
[2022-03-24] MEDS: DILAUDID INJ IVP PRN ×6 (02:56→22:39)
[2022-03-24 05:05] LABS: BASOPHILS % (AUTO) 0.4 % (0.2-1.0); EOSINOPHILS # (AUTO) 0.1 x10^3/uL (0.0-0.2); EOSINOPHILS % (AUTO) 0.7 % (0.9-2.9); HEMATOCRIT 43.7 % (42.0-54.0); HEMOGLOBIN 14.8 g/dL (13.5-18.0); LYMPHOCYTES # (AUTO) 1.6 X10^3/uL (1.3-2.9); LYMPHOCYTES % (AUTO) 18.2 % (21.0-51.0); MEAN CORPUSCULAR HEMOGLOBIN 29.7 pg (27.0-34.0); MEAN CORPUSCULAR VOLUME 87.5 fL (80.0-100.0); MEAN PLATELET VOLUME 7.1 fL (7.4-11.0); MONOCYTES # (AUTO) 0.9 x10^3/uL (0.3-0.8); MONOCYTES % (AUTO) 9.8 % (0.0-13.0); NEUTROPHILS # (AUTO) 6.2 x10^3/uL (2.2-4.8); NEUTROPHILS % (AUTO) 70.9 % (42.0-75.0); RED BLOOD COUNT 4.99 X10^6/uL (4.7-6.0); RED CELL DISTRIBUTION WIDTH 14.2 % (11.6-16.5); WHITE BLOOD COUNT 8.8 X10^3/uL (3.6-10.0)
[2022-03-24 05:08] LABS: ALANINE AMINOTRANSFERASE 54 Units/L (12-78); ALBUMIN 3.2 g/dL (3.4-5.0); ALKALINE PHOSPHATASE 91 Units/L (46-116); ASPARTATE AMINO TRANSFERASE 17 Units/L (15-37); BLOOD UREA NITROGEN 13 mg/dL (7-18); CALCIUM 8.2 mg/dL (8.5-10.1); CARBON DIOXIDE 29.2 mmol/L (21-32); CHLORIDE 106 mmol/L (98-107); COR CA(FOR HYPOALB) 8.8 mg/dL (8.5-10.1); COR NA(FOR HYPERGLY) 142 mmol/L (136-145); CREATININE 1.14 mg/dL (0.70-1.30); SODIUM 141 mmol/L (136-145); TOTAL PROTEIN 6.6 g/dL (6.4-8.2); eGFR NON BLACK RACES > 60 (>60)
--- NOTE | 2022-03-24 06:49 | RAD ---
HISTORYSBOSTUDYAbdomen with PA chest three [id number]/01/2022FINDINGSPA chest: Elevated diaphragm with pulmonary hypo inflation. No acute cardiac, pulmonary or pleural abnormality.Abdomen: Supine and semi-erect views of abdomen demonstrate moderately severe gaseous distention of bowel. No definite free air is demonstrated. NG tube terminates in the proximal stomach.IMPRESSIONPersistent intestinal distention consistent with an obstructing process. Pneumoperitoneum cannot be reliably excluded without availability of a full upright view of the diaphragm, not available on this study.Electronically signed by: JOAO BRUCE (March 24, 2022 06:48:58)
[2022-03-24] MEDS: ZOFRAN INJ 4 MG VIAL IVP PRN ×3 (11:38→22:42)
--- NOTE | 2022-03-24 19:14 | NOTE.SOAP ---
Soap Note Note for Day of Date of Exam: 03/24/22 Subjective Data Subjective Data: Tolerating NG tube. No flatus or BM. Objective Data Temperature: 97.5 F Pulse Rate: 52 Respiratory Rate: 20 Blood Pressure: 169/80 O2 Sat by Pulse Oximetry: 93 Objective Data: Abdomen still distended but non-tender. AAS still shows dilated small bowel consistent with small bowel obstruction. Assessment Assessment: Small bowel obstruction, little improvement. Plan Plan: Continue hydration , NG tube and repeat labs and xrays in AM
[2022-03-25] MEDS: LR 1,000 ML IV 1,000 ML IV SCH ×4 (01:01→17:36)
[2022-03-25] MEDS: DILAUDID INJ IVP PRN ×6 (02:03→21:34)
[2022-03-25] MEDS: ZOFRAN INJ 4 MG VIAL IVP PRN ×2 (04:58→15:05)
[2022-03-25 06:30] LABS: BLOOD UREA NITROGEN 11 mg/dL (7-18); CALCIUM 8.5 mg/dL (8.5-10.1); CARBON DIOXIDE 30.6 mmol/L (21-32); CHLORIDE 104 mmol/L (98-107); COR NA(FOR HYPERGLY) 142 mmol/L (136-145); CREATININE 1.05 mg/dL (0.70-1.30); SODIUM 141 mmol/L (136-145); eGFR NON BLACK RACES > 60 (>60)
--- NOTE | 2022-03-25 07:49 | RAD ---
HISTORYSmall-bowel obstruction follow-upSTUDYAbdomen series with portable AP chest three [id number]/02/2022FINDINGSPortabl e AP chest: Normal heart size. Elevated right diaphragm with right basal atelectasis. No pleural fluid or pneumoperitoneum identified.Abdomen: Supine and semi upright views demonstrate gaseous dilatation of small and large bowel. Nasogastric tube is looped in the stomach. No mass formation is seen.IMPRESSIONPersistent intestinal distention consistent with at least partial small bowel obstruction. Pneumoperitoneum cannot be confidently excluded on the non-upright exam. Follow-up full upright or decubitus view suggested to evaluate this, if clinically suspected.Electronically signed by: JOAO BRUCE (March 25, 2022 07:49:27)
[2022-03-25 12:53] VITALS: BMI 37.7
--- NOTE | 2022-03-25 23:08 | NOTE.SOAP ---
Soap Note Note for Day of Date of Exam: 03/25/22 Subjective Data Subjective Data: NG tube still in place. Abdomen is still distended. Abdominal series still shows at least partial SBO. Not passing flatus. Objective Data Temperature: 97.4 F Pulse Rate: 69 Respiratory Rate: 20 Blood Pressure: 164/83 O2 Sat by Pulse Oximetry: 93 Objective Data: Abdomen is not tender but distended Assessment Assessment: SBO Plan Plan: Unless improving will plan laparotomy with lysis of adhesions and possible bowel resection tomorrow.
[2022-03-26] MEDS: LR 1,000 ML IV 1,000 ML IV SCH ×4 (01:55→21:00)
[2022-03-26] MEDS: DILAUDID INJ IVP PRN ×4 (01:55→09:18)
[2022-03-26 04:59] LABS: BASOPHILS # (AUTO) 0.1 X10^3/uL (0.0-0.1); BASOPHILS % (AUTO) 1.1 % (0.2-1.0); EOSINOPHILS # (AUTO) 0.2 x10^3/uL (0.0-0.2); EOSINOPHILS % (AUTO) 2.7 % (0.9-2.9); HEMATOCRIT 42.7 % (42.0-54.0); HEMOGLOBIN 14.4 g/dL (13.5-18.0); LYMPHOCYTES # (AUTO) 1.5 X10^3/uL (1.3-2.9); MEAN CORPUSCULAR HEMOGLOBIN 29.3 pg (27.0-34.0); MEAN CORPUSCULAR HGB CONC 33.7 g/dL (33.0-35.0); MEAN PLATELET VOLUME 7.6 fL (7.4-11.0); MONOCYTES # (AUTO) 0.9 x10^3/uL (0.3-0.8); MONOCYTES % (AUTO) 10.1 % (0.0-13.0); NEUTROPHILS # (AUTO) 5.9 x10^3/uL (2.2-4.8); NEUTROPHILS % (AUTO) 69.1 % (42.0-75.0); RED CELL DISTRIBUTION WIDTH 13.9 % (11.6-16.5); WHITE BLOOD COUNT 8.6 X10^3/uL (3.6-10.0)
[2022-03-26 05:08] LABS: ALANINE AMINOTRANSFERASE 42 Units/L (12-78); ALBUMIN 3.2 g/dL (3.4-5.0); ALKALINE PHOSPHATASE 92 Units/L (46-116); ASPARTATE AMINO TRANSFERASE 18 Units/L (15-37); BLOOD UREA NITROGEN 10 mg/dL (7-18); CALCIUM 8.6 mg/dL (8.5-10.1); CARBON DIOXIDE 27.3 mmol/L (21-32); CHLORIDE 100 mmol/L (98-107); COR CA(FOR HYPOALB) 9.2 mg/dL (8.5-10.1); CREATININE 0.88 mg/dL (0.70-1.30); SODIUM 136 mmol/L (136-145); eGFR NON BLACK RACES > 60 (>60)
--- NOTE | 2022-03-26 06:15 | RAD ---
HISTORYSmall bowel obstructionSTUDYChest AP [id number]/03/2022FINDINGSTher e is a nasogastric tube coursing below the left hemidiaphragm. Its tip appears in the expected position of the stomach. Heart size is upper limits normal. Maria Guadalupe are normal. Aorta is mildly ectatic. Right hemidiaphragm is elevated. There is minimal subsegmental atelectasis in the right lung base. No infiltrates or pleural effusions are identified. Bony thorax is unremarkable.IMPRESSIONLungs free of acute infiltratesElevated right hemidiaphragmElectronically signed by: WALLY STEWART (March 26, 2022 06:15:03)
[2022-03-26] MEDS ORDERED: ANCEF VIAL 1 GRAM ONE (15:04)
[2022-03-26] MEDS ORDERED: NS 1,000 ML IV 1,000 ML ONE ×2 (15:05→17:35)
[2022-03-26] MEDS ORDERED: NS 100 ML IV 100 ML ONE (15:05)
[2022-03-26] MEDS ORDERED: PRECEDEX INJ VIAL IVP ONE (15:09)
[2022-03-26] MEDS ORDERED: DIPRIVAN VIAL 20 ML ONE (15:09)
[2022-03-26] MEDS ORDERED: FENTANYL VIAL INJ 100 mcg ONE ×2 (15:09→18:23)
[2022-03-26] MEDS ORDERED: ZEMURON 100 MG VIAL ONE (15:09)
[2022-03-26] MEDS ORDERED: DECADRON INJ ONE ×2 (15:09→16:48)
[2022-03-26] MEDS ORDERED: QUELICIN (OR ANECTINE) ONE (15:09)
[2022-03-26] MEDS ORDERED: ZOFRAN INJ 4 MG VIAL ONE (15:10)
[2022-03-26] MEDS ORDERED: PEPCID 20 MG VIAL ONE (15:10)
[2022-03-26] MEDS ORDERED: XYLOCAINE 2 % (PLAIN) ONE (16:00)
[2022-03-26] MEDS ORDERED: SUPRANE ONE (16:00)
[2022-03-26] MEDS ORDERED: KETAMINE HCL ONE (16:00)
[2022-03-26] MEDS ORDERED: ULTANE GAS IN ONE (16:00)
[2022-03-26] MEDS ORDERED: NAROPIN 0.75% EPI ONE (16:48)
[2022-03-26] MEDS ORDERED: BRIDION ONE (17:33)
--- NOTE | 2022-03-26 18:17 | OR.IMMED ---
IMMEDIATE POST-OP NOTE Immediate Post-Op Note Pre-Op Diagnosis: small bowel obstruction Post-Op Diagnosis: same Procedure: laparotomy, lysis of extensive adhesions, resection 2 areas of small bowel obstructed from previously placed mesh to repair a hernia of the abdominal wall Description of Procedure: see operative summary Surgeon/International Travel Consultant: Opal Findings: SBO secondary to adhesions and small bowel stuck to mesh Specimens Removed: small bowel x 2 ( 20 cm jejunum, 10 cm of ileum) Estimated Blood Loss: 200 cc Drains: NONE Progress Notes: To PACU then to floor , High risk of complications including wound infection, TEPP block for pain Condition: Stable Final Diagnosis: small bowel obstruction
[2022-03-26] MEDS ORDERED: DILAUDID PCA 60 MG IVP PRN (18:19)
[2022-03-26] MEDS ORDERED: BARHEMSYS INJ IVP PRN (18:44)
[2022-03-26] MEDS ORDERED: ZOFRAN INJ 4 MG VIAL IVP PRN (18:44)
[2022-03-26] MEDS ORDERED: BENADRYL INJ 50 MG VIAL IVP PRN (18:44)
[2022-03-26] MEDS ORDERED: PHENERGAN INJ 25 MG IM PRN (18:44)
[2022-03-26] MEDS ORDERED: DILAUDID INJ IVP PRN (18:44)
[2022-03-26] MEDS: MORPHINE SULFATE PCA 30 MG IVP PRN (20:59)
[2022-03-26] MEDS: ZOFRAN INJ 4 MG VIAL IVP PRN (21:39)
[2022-03-27] MEDS: LR 1,000 ML IV 1,000 ML IV SCH ×6 (04:10→20:26)
[2022-03-27 05:30] LABS: BASOPHILS % (AUTO) 0.2 % (0.2-1.0); HEMATOCRIT 42.3 % (42.0-54.0); HEMOGLOBIN 14.3 g/dL (13.5-18.0); LYMPHOCYTES # (AUTO) 0.8 X10^3/uL (1.3-2.9); LYMPHOCYTES % (AUTO) 6.1 % (21.0-51.0); MEAN CORPUSCULAR HEMOGLOBIN 29.4 pg (27.0-34.0); MEAN CORPUSCULAR HGB CONC 33.9 g/dL (33.0-35.0); MEAN CORPUSCULAR VOLUME 86.9 fL (80.0-100.0); MEAN PLATELET VOLUME 7.5 fL (7.4-11.0); MONOCYTES # (AUTO) 1.2 x10^3/uL (0.3-0.8); MONOCYTES % (AUTO) 9.3 % (0.0-13.0); NEUTROPHILS % (AUTO) 84.4 % (42.0-75.0); RED BLOOD COUNT 4.87 X10^6/uL (4.7-6.0)
[2022-03-27 05:42] LABS: BLOOD UREA NITROGEN 10 mg/dL (7-18); CALCIUM 8.3 mg/dL (8.5-10.1); CARBON DIOXIDE 18.9 mmol/L (21-32); CHLORIDE 102 mmol/L (98-107); COR NA(FOR HYPERGLY) 137 mmol/L (136-145); CREATININE 0.89 mg/dL (0.70-1.30); SODIUM 135 mmol/L (136-145); eGFR NON BLACK RACES > 60 (>60)
[2022-03-27] MEDS: MORPHINE SULFATE PCA 30 MG IVP PRN ×2 (06:14→16:59)
[2022-03-27] MEDS: ZOFRAN INJ 4 MG VIAL IVP PRN ×2 (06:20→16:33)
--- NOTE | 2022-03-27 07:35 | RAD ---
HISTORYNG tube [id number]/03/2022 r.br.br.br in the expected position of the stomach. There is a CAVAL FILTER present. Surgical madai are present in the right abdomen. The abdominal gas pattern is nonspecific and nonobstructive. No abnormal masses or abnormal calcifications are identified. Regional skeleton is intact.IMPRESSIONNG tube tip and side port in the expected position of the stomachPostoperative changes as aboveNonspecific bowel gas patternElectronically signed by: WALLY STEWART (March 27, 2022 07:34:11)
[2022-03-27] MEDS: PROTONIX INJ 40 MG VIAL IVP SCH (08:13)
--- NOTE | 2022-03-27 15:19 | NOTE.SOAP ---
Soap Note Note for Day of Date of Exam: 03/27/22 Subjective Data Subjective Data: POD # 1After laparotomy with lysis of adhesions and resection of two areas of small bowel with obstruction secondary to involvement of abdominal wall mesh. Post-procedure the patient became combative on the floor and pulled out his NG Tube and required restraints. Patient is doing well now and NG tube has been replaced and position confirmed with stethoscope and x-ray. HE is afebile and stable. Objective Data Temperature: 97.6 F Pulse Rate: 86 Respiratory Rate: 16 Blood Pressure: 147/87 O2 Sat by Pulse Oximetry: 94 Objective Data: Incision cover ed with Aquacell AG dressing with no significant drainage . He is at higher than usual risk for wound infection and the skin was loosely closed. Hgb=14.3, WBC=13.0, Vw=108, K=4.3, Cr=0.89 Assessment Assessment: S/p laparotomy , lysis of adhesions, resection of small bowel x 2 to resolve bowel obstruction. Doing well. Plan Plan: Continue NG tube until bowel function returns. Watch for wound infection.
--- NOTE | 2022-03-27 15:26 | DR.OPNOTE ---
OP NOTE Pre-Op Diagnosis: Small bowel obstruction Post-Op Diagnosis: Same Procedure Date Date Of Procedure: 03/26/22 Procedure: PROCEDURE: LAPAROTOMY, LYSIS OF ADHESIONS, RESECTION 2 SEGMENTS SMALL BOWEL WITH REANASTAMOSIS. NARRATIVE : The patient was taken to the operative suite, placed in the supine position and general endotracheal anesthesia induced. The entire abdomen was prepped and draped in sterile fashion. Time out for the procedure obtained . Mid-line incision was made with a number 10 blade knife extending to the fascia which was opened with electrocautery and the peritoneum opened with Metzenbaum scissors. There were extensively dilated loops of small bowel with bowel stuck against the abdominal wall mesh in the lower to mid abdomen. This area of obstruction was dissected free sharply removing the involved mesh as well. Once this area was removed from the abdominal wall, all the adhesions from the ligament of Treitz to the iileo-cecal valve were divided with Metzenbaum scissors or electrocautery. An approximately 20 cm segment of obstructed bowel involving the mesh was divided on either side with the MARTINE stapler. Mesentery divided between clamps and tied with 2-0 silk ligatures and this segment removed . The two ends of the small bowel where approximated side to side with 2-0 silk suture ligatures. Each portion of bowel was opened with electrocautery and the MARTINE used to complete the anastomosis. The remaining defect closed with an additional fire of the MARTINE stapler. The mesenteric defect closed with a running 3-0 Vicryl suture . An additional segment of the ileum approximately 10 cm in length had the mesentery removed and was devascularized. The bowel was divided on either side of this area with the Martine stapler. Mesentery divided between clamps and tied with 2-0 silk ligatures . The two ends of the bowel approximated with 2-0 silk suture ligatures. Each end of the bowel opened with electrocautery and the MARTINE stapler used to create the anastomosis . The remaining defect of the bowel closed with another fire of the MARTINE stapler and the mesentery closed with running 3-0 Vicryl suture . The bowel was run from the ligament of Treitz to the ilieo-cecal valve three times. There was no evidence of leak or other defects. The entire colon was free of any obstruction. The abdomen was irrigated with saline. I inspected the remaining piece of mesh in the lower abdomen and it was covered with a peritoneal surface therefore I left it in place. NG tube was in good position in the stomach . The midline fascia was closed with running # 1 PDS suture . The skin was loosely closed with madai and covered with an Aquacel AG dressing . The patient was extubated and taken to PACU in good condition. Type of Anesthesia: General Anesthetic w/ETT and General Anesthetic w/mask Anesthesia Comment: DARA block and TYPEWRITER RIBBON WINDER used to control post -op pain. Findings: Sever bowel obstruction secondary to adhesions to area of previously placed abdominal mesh to repair and umbilical hernia. Specimen/Pathology: 2 segments of small bowel. Type of Fluids Used:: Lactated Ringers Total Amount of Fluid Infused:: 1000 cc Urine output: 200 cc EBL: < 100 ccnone Complications:: none Needle/Sponge Count:: correct Disposition/Condition: Pt. tolerated procedure without difficulty. Extubated in the OR and taken to PACU in stable condition.
[2022-03-28] MEDS: LR 1,000 ML IV 1,000 ML IV SCH ×4 (04:26→18:07)
[2022-03-28] MEDS: MORPHINE SULFATE PCA 30 MG IVP PRN ×2 (04:35→13:46)
[2022-03-28 05:16] LABS: BASOPHILS # (AUTO) 0.1 X10^3/uL (0.0-0.1); BASOPHILS % (AUTO) 0.7 % (0.2-1.0); EOSINOPHILS # (AUTO) 0.1 x10^3/uL (0.0-0.2); EOSINOPHILS % (AUTO) 1.1 % (0.9-2.9); HEMATOCRIT 40.3 % (42.0-54.0); HEMOGLOBIN 13.9 g/dL (13.5-18.0); LYMPHOCYTES # (AUTO) 1.5 X10^3/uL (1.3-2.9); LYMPHOCYTES % (AUTO) 13.6 % (21.0-51.0); MEAN CORPUSCULAR HEMOGLOBIN 29.8 pg (27.0-34.0); MEAN CORPUSCULAR HGB CONC 34.4 g/dL (33.0-35.0); MEAN CORPUSCULAR VOLUME 86.8 fL (80.0-100.0); MEAN PLATELET VOLUME 7.2 fL (7.4-11.0); MONOCYTES # (AUTO) 1.5 x10^3/uL (0.3-0.8); MONOCYTES % (AUTO) 13.4 % (0.0-13.0); NEUTROPHILS # (AUTO) 7.8 x10^3/uL (2.2-4.8); NEUTROPHILS % (AUTO) 71.2 % (42.0-75.0); RED BLOOD COUNT 4.65 X10^6/uL (4.7-6.0); RED CELL DISTRIBUTION WIDTH 14.2 % (11.6-16.5); WHITE BLOOD COUNT 10.9 X10^3/uL (3.6-10.0)
[2022-03-28 06:02] LABS: ALANINE AMINOTRANSFERASE 34 Units/L (12-78); ALBUMIN 2.6 g/dL (3.4-5.0); ALKALINE PHOSPHATASE 82 Units/L (46-116); ASPARTATE AMINO TRANSFERASE 15 Units/L (15-37); BLOOD UREA NITROGEN 10 mg/dL (7-18); CALCIUM 8.3 mg/dL (8.5-10.1); CHLORIDE 101 mmol/L (98-107); COR CA(FOR HYPOALB) 9.4 mg/dL (8.5-10.1); COR NA(FOR HYPERGLY) 138 mmol/L (136-145); CREATININE 0.83 mg/dL (0.70-1.30); SODIUM 137 mmol/L (136-145); TOTAL PROTEIN 6.6 g/dL (6.4-8.2); eGFR NON BLACK RACES > 60 (>60)
[2022-03-28] MEDS: PROTONIX INJ 40 MG VIAL IVP SCH (08:35)
--- NOTE | 2022-03-28 16:16 | DR.PROGNOT ---
Hospital Progress Notes - Progress Note for Day of: Progress Note Date: 03/28/22 - Chief Complaint Chief Complaint: c/o moderate incisional pain . moderate drainage in NGT .. good urine out put . CBC , lytes, BUN/Crea normal. afebrile .. - Past Medical Family Social History Past Med/Fam/Surg Hx: No changes since H&P Allergies: Allergies No Known Drug Allergies Allergy (Verified 12/24/21 15:03) - Review Of Systems ROS: No change since H&P - Vital Signs Vital Signs: Temperature 97.3 F Pulse Rate [Left Brachial] 99 Pulse Rate 94 Respiratory Rate 20 Blood Pressure [Left Arm] 161/79 Blood Pressure [Right Arm] 147/83 Blood Pressure 158/82 O2 Sat by Pulse Oximetry 91 - Physical Exam Oriented: Normal, Time, Person, Place Eyes: Normal Ear: Normal Nose: Normal Throat: Normal Cardiovascular: Normal : Normal GI:Auscultation: Absent GI:Palpation: Other (soft abdomen .. dressing intact .. BS hypoactive ..) GI: Tenderness: Diffuse, Other (no evidence) Skin: Normal Musculoskeletal: Normal Psychiatric: Normal Mood Description: Calm Affect: Normal Speech Pattern: Clear, Appropriate - Laboratory and Diagnostics Result Diagrams: 03/28/22 04:40 03/28/22 04:40 Labs: Laboratory WBC 10.9 X10^3/uL (3.6-10.0) H 03/28/22 04:40 RBC 4.65 X10^6/uL (4.7-6.0) L 03/28/22 04:40 Hgb 13.9 g/dL (13.5-18.0) 03/28/22 04:40 Hct 40.3 % (42.0-54.0) L 03/28/22 04:40 MCV 86.8 fL (80.0-100.0) 03/28/22 04:40 MCH 29.8 pg (27.0-34.0) 03/28/22 04:40 MCHC 34.4 g/dL (33.0-35.0) 03/28/22 04:40 RDW 14.2 % (11.6-16.5) 03/28/22 04:40 Plt Count 352 X10^3/uL (150.0-450.0) 03/28/22 04:40 MPV 7.2 fL (7.4-11.0) L 03/28/22 04:40 Neut % (Auto) 71.2 % (42.0-75.0) 03/28/22 04:40 Lymph % (Auto) 13.6 % (21.0-51.0) L 03/28/22 04:40 [place] % (Auto) 13.4 % (0.0-13.0) H 03/28/22 04:40 Eos % (Auto) 1.1 % (0.9-2.9) 03/28/22 04:40 Baso % (Auto) 0.7 % (0.2-1.0) 03/28/22 04:40 Neut # (Auto) 7.8 x10^3/uL (2.2-4.8) H 03/28/22 04:40 Lymph # (Auto) 1.5 X10^3/uL (1.3-2.9) 03/28/22 04:40 [place] # (Auto) 1.5 x10^3/uL (0.3-0.8) H 03/28/22 04:40 Eos # (Auto) 0.1 x10^3/uL (0.0-0.2) 03/28/22 04:40 Baso # (Auto) 0.1 X10^3/uL (0.0-0.1) 03/28/22 04:40 Absolute Nucleated RBC 0.0 /100WBC 03/28/22 04:40 Sodium 137 mmol/L (136-145) 03/28/22 04:40 Corrected Sodium 138 mmol/L (136-145) 03/28/22 04:40 Potassium 3.6 mmol/L (3.5-5.1) 03/28/22 04:40 Chloride 101 mmol/L (98-107) 03/28/22 04:40 Carbon Dioxide 23.0 mmol/L (21-32) 03/28/22 04:40 BUN 10 mg/dL (7-18) 03/28/22 04:40 Creatinine 0.83 mg/dL (0.70-1.30) 03/28/22 04:40 Est GFR (MDRD) Af Amer > 60 (>60) 03/28/22 04:40 Est GFR (MDRD) Non-Af > 60 (>60) 03/28/22 04:40 Glucose 136 mg/dL (65-99) H 03/28/22 04:40 POC Glucose (mg/dL) 104 mg/dL (65-99) H 03/28/22 11:34 Calcium 8.3 mg/dL (8.5-10.1) L 03/28/22 04:40 Corrected Calcium 9.4 mg/dL (8.5-10.1) 03/28/22 04:40 Total Bilirubin 1.00 mg/dL (0.2-1.0) 03/28/22 04:40 AST 15 Units/L (15-37) 03/28/22 04:40 ALT 34 Units/L (12-78) 03/28/22 04:40 Alkaline Phosphatase 82 Units/L (46-116) 03/28/22 04:40 Total Protein 6.6 g/dL (6.4-8.2) 03/28/22 04:40 Albumin 2.6 g/dL (3.4-5.0) L 03/28/22 04:40 Globulin 4.0 g/dL (2.5-4.5) 03/28/22 04:40 Albumin/Globulin Ratio 0.7 Ratio (1.1-2.1) L 03/28/22 04:40 SARS-CoV-2 (PCR) Negative (NEGATIVE) 03/23/22 16:05 Tissue Pathology To follow 03/26/22 17:50 - Assessment and Plan 1: PO laparotomy , lysis of adhesions . same PO care . DVT prophylaxis , keep NGT today , OOB , incentive spirometer .. - Problem Patient Problems: Patient Problems Small bowel obstruction (Acute) K56.607
[2022-03-29] MEDS: LR 1,000 ML IV 1,000 ML IV SCH ×3 (01:12→16:40)
[2022-03-29] MEDS: MORPHINE SULFATE PCA 30 MG IVP PRN (05:44)
[2022-03-29 06:14] LABS: BASOPHILS # (AUTO) 0.1 X10^3/uL (0.0-0.1); BASOPHILS % (AUTO) 1.1 % (0.2-1.0); EOSINOPHILS # (AUTO) 0.2 x10^3/uL (0.0-0.2); EOSINOPHILS % (AUTO) 2.6 % (0.9-2.9); HEMATOCRIT 38.2 % (42.0-54.0); LYMPHOCYTES # (AUTO) 1.5 X10^3/uL (1.3-2.9); LYMPHOCYTES % (AUTO) 15.3 % (21.0-51.0); MEAN CORPUSCULAR HEMOGLOBIN 29.4 pg (27.0-34.0); MEAN CORPUSCULAR HGB CONC 33.9 g/dL (33.0-35.0); MEAN CORPUSCULAR VOLUME 86.6 fL (80.0-100.0); MEAN PLATELET VOLUME 7.1 fL (7.4-11.0); MONOCYTES # (AUTO) 1.3 x10^3/uL (0.3-0.8); MONOCYTES % (AUTO) 13.2 % (0.0-13.0); NEUTROPHILS # (AUTO) 6.5 x10^3/uL (2.2-4.8); NEUTROPHILS % (AUTO) 67.8 % (42.0-75.0); RED BLOOD COUNT 4.42 X10^6/uL (4.7-6.0); RED CELL DISTRIBUTION WIDTH 14.1 % (11.6-16.5); WHITE BLOOD COUNT 9.6 X10^3/uL (3.6-10.0)
[2022-03-29 06:31] LABS: ALANINE AMINOTRANSFERASE 37 Units/L (12-78); ALBUMIN 2.4 g/dL (3.4-5.0); ALKALINE PHOSPHATASE 83 Units/L (46-116); ASPARTATE AMINO TRANSFERASE 20 Units/L (15-37); BLOOD UREA NITROGEN 9 mg/dL (7-18); CALCIUM 8.4 mg/dL (8.5-10.1); CARBON DIOXIDE 24.7 mmol/L (21-32); CHLORIDE 101 mmol/L (98-107); COR CA(FOR HYPOALB) 9.7 mg/dL (8.5-10.1); COR NA(FOR HYPERGLY) 136 mmol/L (136-145); SODIUM 136 mmol/L (136-145); TOTAL PROTEIN 6.5 g/dL (6.4-8.2); eGFR NON BLACK RACES > 60 (>60)
[2022-03-29] MEDS: LOVENOX INJ 40 MG SYR SC SCH (08:29)
[2022-03-29] MEDS: PROTONIX INJ 40 MG VIAL IVP SCH (08:30)
--- NOTE | 2022-03-29 11:19 | DR.PROGNOT ---
Hospital Progress Notes - Progress Note for Day of: Progress Note Date: 03/29/22 - Chief Complaint Chief Complaint: less abdominal pain . mild drainage in NGT .. no BM yet. good urine out put . CBC , lytes, BUN/Crea normal. afebrile .. - Past Medical Family Social History Past Med/Fam/Surg Hx: No changes since H&P Allergies: Allergies No Known Drug Allergies Allergy (Verified 12/24/21 15:03) - Review Of Systems ROS: No change since H&P - Vital Signs Vital Signs: Temperature 98.5 F Pulse Rate [Left Brachial] 99 Pulse Rate 75 Respiratory Rate 22 Blood Pressure [Left Arm] 161/79 Blood Pressure [Right Arm] 147/83 Blood Pressure 126/77 O2 Sat by Pulse Oximetry 93 - Physical Exam Oriented: Normal, Time, Person, Place Eyes: Normal Ear: Normal Nose: Normal Throat: Normal Cardiovascular: Normal : Normal GI:Auscultation: Absent GI:Palpation: Other (soft abdomen .. dressing intact .. BS hypoactive ..) GI: Tenderness: Diffuse (soft abdomen , hypoactive BS ), Other Skin: Normal Musculoskeletal: Normal Psychiatric: Normal Mood Description: Calm Affect: Normal Speech Pattern: Clear, Appropriate - Laboratory and Diagnostics Result Diagrams: 03/29/22 05:34 03/29/22 05:34 Labs: Laboratory WBC 9.6 X10^3/uL (3.6-10.0) 03/29/22 05:34 RBC 4.42 X10^6/uL (4.7-6.0) L 03/29/22 05:34 Hgb 13.0 g/dL (13.5-18.0) L 03/29/22 05:34 Hct 38.2 % (42.0-54.0) L 03/29/22 05:34 MCV 86.6 fL (80.0-100.0) 03/29/22 05:34 MCH 29.4 pg (27.0-34.0) 03/29/22 05:34 MCHC 33.9 g/dL (33.0-35.0) 03/29/22 05:34 RDW 14.1 % (11.6-16.5) 03/29/22 05:34 Plt Count 379 X10^3/uL (150.0-450.0) 03/29/22 05:34 MPV 7.1 fL (7.4-11.0) L 03/29/22 05:34 Neut % (Auto) 67.8 % (42.0-75.0) 03/29/22 05:34 Lymph % (Auto) 15.3 % (21.0-51.0) L 03/29/22 05:34 [place] % (Auto) 13.2 % (0.0-13.0) H 03/29/22 05:34 Eos % (Auto) 2.6 % (0.9-2.9) 03/29/22 05:34 Baso % (Auto) 1.1 % (0.2-1.0) H 03/29/22 05:34 Neut # (Auto) 6.5 x10^3/uL (2.2-4.8) H 03/29/22 05:34 Lymph # (Auto) 1.5 X10^3/uL (1.3-2.9) 03/29/22 05:34 [place] # (Auto) 1.3 x10^3/uL (0.3-0.8) H 03/29/22 05:34 Eos # (Auto) 0.2 x10^3/uL (0.0-0.2) 03/29/22 05:34 Baso # (Auto) 0.1 X10^3/uL (0.0-0.1) 03/29/22 05:34 Absolute Nucleated RBC 0.0 /100WBC 03/29/22 05:34 Sodium 136 mmol/L (136-145) 03/29/22 05:34 Corrected Sodium 136 mmol/L (136-145) 03/29/22 05:34 Potassium 3.9 mmol/L (3.5-5.1) 03/29/22 05:34 Chloride 101 mmol/L (98-107) 03/29/22 05:34 Carbon Dioxide 24.7 mmol/L (21-32) 03/29/22 05:34 BUN 9 mg/dL (7-18) 03/29/22 05:34 Creatinine 0.80 mg/dL (0.70-1.30) 03/29/22 05:34 Est GFR (MDRD) Af Amer > 60 (>60) 03/29/22 05:34 Est GFR (MDRD) Non-Af > 60 (>60) 03/29/22 05:34 Glucose 113 mg/dL (65-99) H 03/29/22 05:34 POC Glucose (mg/dL) 121 mg/dL (65-99) H 03/29/22 05:28 Calcium 8.4 mg/dL (8.5-10.1) L 03/29/22 05:34 Corrected Calcium 9.7 mg/dL (8.5-10.1) 03/29/22 05:34 Total Bilirubin 1.20 mg/dL (0.2-1.0) H 03/29/22 05:34 AST 20 Units/L (15-37) 03/29/22 05:34 ALT 37 Units/L (12-78) 03/29/22 05:34 Alkaline Phosphatase 83 Units/L (46-116) 03/29/22 05:34 Total Protein 6.5 g/dL (6.4-8.2) 03/29/22 05:34 Albumin 2.4 g/dL (3.4-5.0) L 03/29/22 05:34 Globulin 4.1 g/dL (2.5-4.5) 03/29/22 05:34 Albumin/Globulin Ratio 0.6 Ratio (1.1-2.1) L 03/29/22 05:34 SARS-CoV-2 (PCR) Negative (NEGATIVE) 03/23/22 16:05 Tissue Pathology To follow 03/26/22 17:50 - Assessment and Plan 1: PO laparotomy , lysis of adhesions . same PO care . DVT prophylaxis , d/c NGT today , OOB , incentive spirometer .. - Problem Patient Problems: Patient Problems Small bowel obstruction (Acute) K56.875
[2022-03-29] MEDS: PERCOCET TAB 5/325 MG PO PRN ×2 (17:16→22:24)
[2022-03-30] MEDS: MORPHINE SULFATE INJ 2 MG INJ IVP PRN ×5 (00:56→21:35)
[2022-03-30] MEDS: LR 1,000 ML IV 1,000 ML IV SCH ×3 (02:17→17:09)
[2022-03-30] MEDS: PERCOCET TAB 5/325 MG PO PRN (04:41)
[2022-03-30 05:45] LABS: BASOPHILS # (AUTO) 0.3 X10^3/uL (0.0-0.1); BASOPHILS % (AUTO) 2.5 % (0.2-1.0); EOSINOPHILS # (AUTO) 0.3 x10^3/uL (0.0-0.2); EOSINOPHILS % (AUTO) 3.1 % (0.9-2.9); HEMATOCRIT 42.7 % (42.0-54.0); HEMOGLOBIN 14.6 g/dL (13.5-18.0); LYMPHOCYTES % (AUTO) 9.5 % (21.0-51.0); MEAN CORPUSCULAR HEMOGLOBIN 29.5 pg (27.0-34.0); MEAN CORPUSCULAR HGB CONC 34.1 g/dL (33.0-35.0); MEAN CORPUSCULAR VOLUME 86.5 fL (80.0-100.0); MEAN PLATELET VOLUME 7.5 fL (7.4-11.0); MONOCYTES # (AUTO) 1.2 x10^3/uL (0.3-0.8); MONOCYTES % (AUTO) 11.7 % (0.0-13.0); NEUTROPHILS # (AUTO) 7.7 x10^3/uL (2.2-4.8); NEUTROPHILS % (AUTO) 73.2 % (42.0-75.0); RED BLOOD COUNT 4.93 X10^6/uL (4.7-6.0); RED CELL DISTRIBUTION WIDTH 14.2 % (11.6-16.5); WHITE BLOOD COUNT 10.5 X10^3/uL (3.6-10.0)
[2022-03-30 05:55] LABS: ALANINE AMINOTRANSFERASE 63 Units/L (12-78); ALBUMIN 2.8 g/dL (3.4-5.0); ALKALINE PHOSPHATASE 104 Units/L (46-116); ASPARTATE AMINO TRANSFERASE 36 Units/L (15-37); BLOOD UREA NITROGEN 7 mg/dL (7-18); CALCIUM 9.1 mg/dL (8.5-10.1); CARBON DIOXIDE 26.3 mmol/L (21-32); CHLORIDE 98 mmol/L (98-107); COR CA(FOR HYPOALB) 10.1 mg/dL (8.5-10.1); COR NA(FOR HYPERGLY) 136 mmol/L (136-145); SODIUM 136 mmol/L (136-145); TOTAL PROTEIN 7.6 g/dL (6.4-8.2); eGFR NON BLACK RACES > 60 (>60)
[2022-03-30 06:28] LABS: PLATELET MORPHOLOGY COMMENT NORMAL (NORMAL)
--- NOTE | 2022-03-30 09:43 | DR.PROGNOT ---
Hospital Progress Notes - Progress Note for Day of: Progress Note Date: 03/30/22 - Chief Complaint Chief Complaint: still having abdominal pain with moderate distention .. had smal BM last night . good urine out put . CBC , lytes, BUN/Crea normal. afebrile .. - Past Medical Family Social History Past Med/Fam/Surg Hx: No changes since H&P Allergies: Allergies No Known Drug Allergies Allergy (Verified 12/24/21 15:03) - Review Of Systems ROS: No change since H&P - Vital Signs Vital Signs: Temperature 97.8 F Pulse Rate [Left Brachial] 83 Pulse Rate 82 Respiratory Rate 20 Blood Pressure [Left Arm] 137/84 Blood Pressure [Right Arm] 147/83 Blood Pressure 141/82 O2 Sat by Pulse Oximetry 95 - Physical Exam Oriented: Normal, Time, Person, Place Eyes: Normal Ear: Normal Nose: Normal Throat: Normal Cardiovascular: Normal : Normal GI:Auscultation: Absent GI:Palpation: Other (soft abdomen .. dressing intact .. BS hypoactive ..) GI: Tenderness: Diffuse (soft abdomen , hypoactive BS ), Other Skin: Normal Musculoskeletal: Normal Psychiatric: Normal Mood Description: Calm Affect: Normal Speech Pattern: Clear, Appropriate - Laboratory and Diagnostics Result Diagrams: 03/30/22 04:51 03/30/22 04:51 Labs: Laboratory WBC 10.5 X10^3/uL (3.6-10.0) H 03/30/22 04:51 RBC 4.93 X10^6/uL (4.7-6.0) 03/30/22 04:51 Hgb 14.6 g/dL (13.5-18.0) 03/30/22 04:51 Hct 42.7 % (42.0-54.0) 03/30/22 04:51 MCV 86.5 fL (80.0-100.0) 03/30/22 04:51 MCH 29.5 pg (27.0-34.0) 03/30/22 04:51 MCHC 34.1 g/dL (33.0-35.0) 03/30/22 04:51 RDW 14.2 % (11.6-16.5) 03/30/22 04:51 Plt Count 454 X10^3/uL (150.0-450.0) H 03/30/22 04:51 Plt Count Comment Increased (ADEQUATE) 03/30/22 04:51 MPV 7.5 fL (7.4-11.0) 03/30/22 04:51 Neut % (Auto) 73.2 % (42.0-75.0) 03/30/22 04:51 Lymph % (Auto) 9.5 % (21.0-51.0) L 03/30/22 04:51 Lee % (Auto) 11.7 % (0.0-13.0) 03/30/22 04:51 Eos % (Auto) 3.1 % (0.9-2.9) H 03/30/22 04:51 Baso % (Auto) 2.5 % (0.2-1.0) H 03/30/22 04:51 Neut # (Auto) 7.7 x10^3/uL (2.2-4.8) H 03/30/22 04:51 Lymph # (Auto) 1.0 X10^3/uL (1.3-2.9) L 03/30/22 04:51 Lee # (Auto) 1.2 x10^3/uL (0.3-0.8) H 03/30/22 04:51 Eos # (Auto) 0.3 x10^3/uL (0.0-0.2) H 03/30/22 04:51 Baso # (Auto) 0.3 X10^3/uL (0.0-0.1) H 03/30/22 04:51 Absolute Nucleated RBC 0.0 /100WBC 03/30/22 04:51 Total Counted 100 03/30/22 04:51 Neutrophils % (Manual) 73 % (39-76) 03/30/22 04:51 Lymphocytes % (Manual) 11 % (13-43) L 03/30/22 04:51 Monocytes % (Manual) 12 % (4-9) H 03/30/22 04:51 Eosinophils % (Manual) 4 % (0-6) 03/30/22 04:51 Plt Morphology Comment Normal (NORMAL) 03/30/22 04:51 RBC Morphology Normal (NORMAL) 03/30/22 04:51 Sodium 136 mmol/L (136-145) 03/30/22 04:51 Corrected Sodium 136 mmol/L (136-145) 03/30/22 04:51 Potassium 3.9 mmol/L (3.5-5.1) 03/30/22 04:51 Chloride 98 mmol/L (98-107) 03/30/22 04:51 Carbon Dioxide 26.3 mmol/L (21-32) 03/30/22 04:51 BUN 7 mg/dL (7-18) 03/30/22 04:51 Creatinine 0.80 mg/dL (0.70-1.30) 03/30/22 04:51 Est GFR (MDRD) Af Amer > 60 (>60) 03/30/22 04:51 Est GFR (MDRD) Non-Af > 60 (>60) 03/30/22 04:51 Glucose 112 mg/dL (65-99) H 03/30/22 04:51 POC Glucose (mg/dL) 109 mg/dL (65-99) H 03/29/22 21:05 Calcium 9.1 mg/dL (8.5-10.1) 03/30/22 04:51 Corrected Calcium 10.1 mg/dL (8.5-10.1) 03/30/22 04:51 Total Bilirubin 1.60 mg/dL (0.2-1.0) H 03/30/22 04:51 AST 36 Units/L (15-37) 03/30/22 04:51 ALT 63 Units/L (12-78) 03/30/22 04:51 Alkaline Phosphatase 104 Units/L (46-116) 03/30/22 04:51 Total Protein 7.6 g/dL (6.4-8.2) 03/30/22 04:51 Albumin 2.8 g/dL (3.4-5.0) L 03/30/22 04:51 Globulin 4.8 g/dL (2.5-4.5) H 03/30/22 04:51 Albumin/Globulin Ratio 0.6 Ratio (1.1-2.1) L 03/30/22 04:51 SARS-CoV-2 (PCR) Negative (NEGATIVE) 03/23/22 16:05 Tissue Pathology To follow 03/26/22 17:50 - Assessment and Plan 1: PO laparotomy , lysis of adhesions .small bowel resection . prolonged ileus .. same PO care . DVT prophylaxis , OOB , incentive spirometer .. full liquid .. - Problem Patient Problems: Patient Problems Small bowel obstruction (Acute) H26.055
[2022-03-30] MEDS: PROTONIX INJ 40 MG VIAL IVP SCH (09:50)
[2022-03-30] MEDS: LOVENOX INJ 40 MG SYR SC SCH (09:51)
[2022-03-30] MEDS ORDERED: ZOFRAN INJ 4 MG VIAL IVP ONE (10:45)
[2022-03-30] MEDS ORDERED: PHENERGAN INJ 25 MG IM PRN (12:51)
--- NOTE | 2022-03-30 17:11 | RAD ---
EXAM: CHEST X-RAYHISTORY: ND tube placement verification.TECHNIQUE: AP CXR March 30, 2022 that 4:33 PM.COMPARISON: CXR dated March 26, 2022.FINDINGS:A nasogastric tube is noted with the distal tip and the distal body of the stomach.There is a shallow inspiratory effort. There is stable asymmetrical elevation of the right hemidiaphragm approximately 5 cm.The heart size and mediastinum are within normal limits. The lung knight and costophrenic angles are clear. There is no acute parenchymal infiltrate, pleural effusion, or pneumothorax seen. The visualized bony structures are within normal limits.IMPRESSION:1. A nasogastric tube is noted with the distal tip and the distal body of the stomach.2. No evidence for acute cardiopulmonary disease seen.Electronically signed by: Nikhil Birmingham (March 30, 2022 17:09:42)
[2022-03-30] MEDS ORDERED: MORPHINE SULFATE INJ 2 MG INJ ONE (17:44)
[2022-03-30] MEDS: VALIUM INJ IVP PRN (23:03)
[2022-03-31] MEDS: LR 1,000 ML IV 1,000 ML IV SCH ×5 (00:59→16:19)
[2022-03-31] MEDS: MORPHINE SULFATE INJ 2 MG INJ IVP PRN ×4 (00:59→16:00)
[2022-03-31 06:13] LABS: BLOOD UREA NITROGEN 8 mg/dL (7-18); CALCIUM 8.7 mg/dL (8.5-10.1); CARBON DIOXIDE 22.6 mmol/L (21-32); CHLORIDE 100 mmol/L (98-107); COR NA(FOR HYPERGLY) 137 mmol/L (136-145); CREATININE 0.73 mg/dL (0.70-1.30); SODIUM 136 mmol/L (136-145); eGFR NON BLACK RACES > 60 (>60)
[2022-03-31 06:23] LABS: BASOPHILS # (AUTO) 0.1 X10^3/uL (0.0-0.1); BASOPHILS % (AUTO) 0.6 % (0.2-1.0); EOSINOPHILS # (AUTO) 0.1 x10^3/uL (0.0-0.2); HEMATOCRIT 39.9 % (42.0-54.0); HEMOGLOBIN 13.8 g/dL (13.5-18.0); LYMPHOCYTES # (AUTO) 1.3 X10^3/uL (1.3-2.9); LYMPHOCYTES % (AUTO) 11.6 % (21.0-51.0); MEAN CORPUSCULAR HEMOGLOBIN 29.9 pg (27.0-34.0); MEAN CORPUSCULAR HGB CONC 34.6 g/dL (33.0-35.0); MEAN CORPUSCULAR VOLUME 86.4 fL (80.0-100.0); MEAN PLATELET VOLUME 7.3 fL (7.4-11.0); MONOCYTES # (AUTO) 1.5 x10^3/uL (0.3-0.8); MONOCYTES % (AUTO) 12.9 % (0.0-13.0); NEUTROPHILS # (AUTO) 8.4 x10^3/uL (2.2-4.8); NEUTROPHILS % (AUTO) 73.9 % (42.0-75.0); RED BLOOD COUNT 4.62 X10^6/uL (4.7-6.0); RED CELL DISTRIBUTION WIDTH 14.2 % (11.6-16.5); WHITE BLOOD COUNT 11.4 X10^3/uL (3.6-10.0)
--- NOTE | 2022-03-31 06:38 | RAD ---
HISTORYPostop small-bowel [id number]/05/2022 .br.br.br.br is a CAVAL FILTER present. Surgical madai are present in the right mid abdomen. Abdominal gas pattern is nonspecific and nonobstructive. No abnormal masses or abnormal calcifications are identified. Regional skeleton is intact.IMPRESSIONNonspecific, nonobstructive bowel gas patternElectronically signed by: WALLY STEWART (March 31, 2022 06:37:16)
[2022-03-31] MEDS: LOVENOX INJ 40 MG SYR SC SCH (09:46)
[2022-03-31] MEDS: PROTONIX INJ 40 MG VIAL IVP SCH (09:47)
[2022-03-31] MEDS: ZOFRAN INJ 4 MG VIAL IVP PRN (11:25)
[2022-03-31] MEDS: VALIUM INJ IVP PRN (13:32)
[2022-03-31] MEDS: OFIRMEV IV 1000 MG VIAL 1,000 MG/100 ML VIAL IV PRN (22:07)
--- NOTE | 2022-03-31 23:48 | NOTE.SOAP ---
Soap Note Note for Day of Date of Exam: 03/31/22 Subjective Data Subjective Data: Status post laparotomy with lysis of adhesions and resection of two areas of small bowel. He had begun to pass some flatus but is now more distended and NG tube reppaced. Objective Data Temperature: 98.4 F Pulse Rate: 84 Respiratory Rate: 20 Blood Pressure: 145/83 O2 Sat by Pulse Oximetry: 96 Objective Data: Abdomen is distended and not tender. Dressing intact with small amount of purulent drainage from the inferior aspect of the mid line incision. Inferior aspect opened, purulence drained , fascia intact and wound packed . Hgb=13.8 WBC=11.4, K+= 3.5, creatinine =0.73 Assessment Assessment: Small bowel obstruction, post procedure ileus probably related to wound infection. Plan Plan: Continue NG tube. Labs and xrays in AM. K+ supplementation.
[2022-04-01] MEDS: LR 1,000 ML IV 1,000 ML IV SCH ×4 (01:45→17:34)
[2022-04-01] MEDS: MORPHINE SULFATE INJ 2 MG INJ IVP PRN ×2 (04:29→08:39)
[2022-04-01 06:04] LABS: BASOPHILS # (AUTO) 0.1 X10^3/uL (0.0-0.1); BASOPHILS % (AUTO) 1.1 % (0.2-1.0); EOSINOPHILS # (AUTO) 0.2 x10^3/uL (0.0-0.2); HEMATOCRIT 40.6 % (42.0-54.0); LYMPHOCYTES # (AUTO) 1.3 X10^3/uL (1.3-2.9); LYMPHOCYTES % (AUTO) 12.6 % (21.0-51.0); MEAN CORPUSCULAR HEMOGLOBIN 29.6 pg (27.0-34.0); MEAN CORPUSCULAR HGB CONC 34.4 g/dL (33.0-35.0); MEAN PLATELET VOLUME 7.2 fL (7.4-11.0); MONOCYTES # (AUTO) 1.2 x10^3/uL (0.3-0.8); MONOCYTES % (AUTO) 11.4 % (0.0-13.0); NEUTROPHILS # (AUTO) 7.6 x10^3/uL (2.2-4.8); NEUTROPHILS % (AUTO) 72.9 % (42.0-75.0); RED BLOOD COUNT 4.72 X10^6/uL (4.7-6.0); RED CELL DISTRIBUTION WIDTH 14.1 % (11.6-16.5); WHITE BLOOD COUNT 10.4 X10^3/uL (3.6-10.0)
[2022-04-01 06:08] LABS: BLOOD UREA NITROGEN 10 mg/dL (7-18); CALCIUM 8.9 mg/dL (8.5-10.1); CARBON DIOXIDE 25.1 mmol/L (21-32); CHLORIDE 100 mmol/L (98-107); COR NA(FOR HYPERGLY) 138 mmol/L (136-145); CREATININE 0.82 mg/dL (0.70-1.30); SODIUM 138 mmol/L (136-145); eGFR NON BLACK RACES > 60 (>60)
--- NOTE | 2022-04-01 06:13 | RAD ---
HISTORYSmall bowel obstructionSTUDYAcute abdominal [id number]/09/2022FINDINGSHeart size is accentuated by hypo inflation. It is likely within normal limits in size. Patient is rotated to the right. Maria Guadalupe are normal. Lungs are hypoinflated but clear. Surgical madai are present in the right mid abdomen. There is a CAVAL FILTER present. The abdominal gas pattern is nonspecific and nonobstructive. No pneumoperitoneum is identified. No abnormal masses or abnormal calcifications are identified. Regional skeleton is intact.IMPRESSIONLungs hypoinflated but clearNonspecific, nonobstructive bowel gas patternElectronically signed by: WALLY STEWART (April 01, 2022 06:12:02)
[2022-04-01] MEDS ORDERED: POTASSIUM CHL 60 MEQ/NS 0.45% 500 ML IV PRN (06:26)
[2022-04-01] MEDS ORDERED: POTASSIUM CHL 40 MEQ/NS 0.45% 500 ML IV PRN (06:26)
[2022-04-01] MEDS: PROTONIX INJ 40 MG VIAL IVP SCH (08:37)
[2022-04-01] MEDS: LOVENOX INJ 40 MG SYR SC SCH (08:38)
[2022-04-01] MEDS: VALIUM INJ IVP PRN (09:13)
[2022-04-01] MEDS ORDERED: K-RIDER 10 MEQ/NS 100 ML 10 MEQ/100 ML BAG IV SCH (10:00)
[2022-04-01] MEDS: MORPHINE SULFATE INJ 4 MG IVP PRN ×2 (12:28→22:19)
--- NOTE | 2022-04-01 21:06 | NOTE.SOAP ---
Soap Note Note for Day of Date of Exam: 04/01/22 Subjective Data Subjective Data: POD # 6 after laparotomy and lysis of adhesions and resection 2 areas of obstructed small bowel . Now has prolonged ilieus probably secondary to hypokalemia .m Also has evidence of infection of inferior aspect of the mid- line incision. Wound packed daily. Fascia is intact. Passed small amount of flatus this PM. Objective Data Temperature: 97.8 F Pulse Rate: 82 Respiratory Rate: 20 Blood Pressure: 169/89 O2 Sat by Pulse Oximetry: 97 Objective Data: Abdomen is not as distended. Mild drainage from the low part of the midline incision. Hgb =14.0, Cr= 0.82, K+= 3.4, WBC=10.4 Assessment Assessment: Small bowel obstruction , ileus resolving. Plan Plan: Continue NG tube , hopefully can DC NG tube in AM. Labs in AM.
[2022-04-01 22:36] LABS: ALANINE AMINOTRANSFERASE 64 Units/L (12-78); ALBUMIN 2.5 g/dL (3.4-5.0); ALKALINE PHOSPHATASE 98 Units/L (46-116); ASPARTATE AMINO TRANSFERASE 31 Units/L (15-37); COR CA(FOR HYPOALB) 9.9 mg/dL (8.5-10.1); TOTAL PROTEIN 6.8 g/dL (6.4-8.2)
[2022-04-02] MEDS: LR 1,000 ML IV 1,000 ML IV SCH ×5 (03:12→18:09)
[2022-04-02] MEDS: MORPHINE SULFATE INJ 4 MG IVP PRN ×2 (03:25→19:43)
[2022-04-02 04:56] LABS: BASOPHILS # (AUTO) 0.1 X10^3/uL (0.0-0.1); BASOPHILS % (AUTO) 0.6 % (0.2-1.0); EOSINOPHILS # (AUTO) 0.2 x10^3/uL (0.0-0.2); HEMATOCRIT 37.9 % (42.0-54.0); HEMOGLOBIN 12.7 g/dL (13.5-18.0); LYMPHOCYTES # (AUTO) 1.5 X10^3/uL (1.3-2.9); LYMPHOCYTES % (AUTO) 13.1 % (21.0-51.0); MEAN CORPUSCULAR HGB CONC 33.6 g/dL (33.0-35.0); MEAN CORPUSCULAR VOLUME 86.3 fL (80.0-100.0); MEAN PLATELET VOLUME 7.2 fL (7.4-11.0); MONOCYTES # (AUTO) 1.1 x10^3/uL (0.3-0.8); MONOCYTES % (AUTO) 9.7 % (0.0-13.0); NEUTROPHILS # (AUTO) 8.6 x10^3/uL (2.2-4.8); NEUTROPHILS % (AUTO) 74.6 % (42.0-75.0); RED BLOOD COUNT 4.39 X10^6/uL (4.7-6.0); RED CELL DISTRIBUTION WIDTH 14.2 % (11.6-16.5); WHITE BLOOD COUNT 11.5 X10^3/uL (3.6-10.0)
[2022-04-02 05:09] LABS: ALANINE AMINOTRANSFERASE 60 Units/L (12-78); ALBUMIN 2.3 g/dL (3.4-5.0); ALKALINE PHOSPHATASE 97 Units/L (46-116); ASPARTATE AMINO TRANSFERASE 26 Units/L (15-37); BLOOD UREA NITROGEN 9 mg/dL (7-18); CALCIUM 8.5 mg/dL (8.5-10.1); CHLORIDE 102 mmol/L (98-107); COR CA(FOR HYPOALB) 9.9 mg/dL (8.5-10.1); COR NA(FOR HYPERGLY) 138 mmol/L (136-145); CREATININE 0.74 mg/dL (0.70-1.30); SODIUM 138 mmol/L (136-145); TOTAL PROTEIN 6.5 g/dL (6.4-8.2); eGFR NON BLACK RACES > 60 (>60)
[2022-04-02] MEDS: PROTONIX INJ 40 MG VIAL IVP SCH (09:13)
[2022-04-02] MEDS: LOVENOX INJ 40 MG SYR SC SCH (09:13)
[2022-04-02] MEDS: K-RIDER 10 MEQ/NS 100 ML 10 MEQ/100 ML BAG IV PRN ×2 (09:14→10:48)
--- NOTE | 2022-04-02 13:22 | NOTE.SOAP ---
Soap Note Note for Day of Date of Exam: 04/02/22 Subjective Data Subjective Data: Doing well. Passing fltus . Potassium being replaced. Inferior aspect of the mid line has been opened and the fascia is intact. Purulent drainage from the mid portion of the wound itself. Additional [place] removed and gross purulence evacuated . Fascia remains intact. Objective Data Temperature: 97.1 F Pulse Rate: 72 Respiratory Rate: 20 Blood Pressure: 128/75 O2 Sat by Pulse Oximetry: 96 Objective Data: Wound as described above . Abdominal distention is resolved. Assessment Assessment: SBO with post op ileus resolving. Plan Plan: D/C NG tube , clear liquid diet . Place wound vacuum to wound later today.
[2022-04-02] MEDS: PERCOCET TAB 5/325 MG PO PRN (13:34)
[2022-04-03] MEDS: LR 1,000 ML IV 1,000 ML IV SCH ×5 (01:24→19:05)
--- NOTE | 2022-04-03 01:34 | NOTE.SOAP ---
Soap Note Note for Day of Date of Exam: 04/02/22 Subjective Data Subjective Data: Patient has been passing flatus .
--- NOTE | 2022-04-03 01:48 | DR.OPNOTE ---
OP NOTE Pre-Op Diagnosis: Wound infection of midline abdominal incision Post-Op Diagnosis: same Procedure Date Date Of Procedure: 04/02/22 Procedure: PROCEDURE : Placement of wound vacuum TO MIDLINE WOUND NARRATIVE: The dressing has been removed. The midline wound has two areas which are open . The most superior measures 9 cm by 4 cm by 3 cm and the distal one measures 8 cm by 4 cm by 3 cm .In the superior wound, the fascia does appear to be minimally disrupted. Black foam placed in both wounds after cutting the foam to fit them. Entire midline wound then covered with adhesive sheet. 2 cm square area of the adhesive sheet removed over each area of foam . Bridge of black foam placed over these two openings. All of this covered with an additional sheet of adhesive. 2 cm square of the sheet removed over the midline bridge and the circular suction pad placed over this opening and the device activated with 150 mm Hg, continuous suction with high intensity. Anesthesia Comment: no anesthesia needed Findings: as above Specimen/Pathology: none EBL: none Drains/Tubes Comment: wound vacuum Complications:: none Needle/Sponge Count:: correct Disposition/Condition: Pt. tolerated procedure without difficulty.
[2022-04-03 06:26] LABS: BLOOD UREA NITROGEN 7 mg/dL (7-18); CALCIUM 8.3 mg/dL (8.5-10.1); CARBON DIOXIDE 23.6 mmol/L (21-32); CHLORIDE 101 mmol/L (98-107); COR NA(FOR HYPERGLY) 136 mmol/L (136-145); CREATININE 0.73 mg/dL (0.70-1.30); SODIUM 136 mmol/L (136-145); eGFR NON BLACK RACES > 60 (>60)
[2022-04-03] MEDS: MORPHINE SULFATE INJ 4 MG IVP PRN ×3 (07:11→16:54)
[2022-04-03] MEDS: LOVENOX INJ 40 MG SYR SC SCH (08:58)
[2022-04-03] MEDS: PROTONIX INJ 40 MG VIAL IVP SCH (09:00)
[2022-04-03] MEDS ORDERED: MICRO K EXTEN CAP 10 MEQ PO PRN (09:31)
[2022-04-03] MEDS ORDERED: K-DUR TAB 20 MEQ PO PRN (09:31)
[2022-04-03] MEDS: PERCOCET TAB 5/325 MG PO PRN (12:08)
[2022-04-03] MEDS: ZOFRAN INJ 4 MG VIAL IVP PRN (12:29)
--- NOTE | 2022-04-03 15:46 | RAD ---
HISTORYABD PAIN, N/V, POST OP, NG TUBE PLACEMENT Relevant Clinical InformationSTUDYACUTE ABDOMEN [id number]/10/2022.FINDINGSHeart size is enlarged. There is bibasilar stranding suggestive of atelectasis. There is no free air under the diaphragm. There is distension of small and large bowel but no evidence of free air. There are no urinary tract calcifications.IMPRESSION1. [No acute cardiopulmonary disease.]2. [Abnormal but nonspecific bowel gas pattern. Question ileus versus obstruction]Electronically signed by: Ayan Jade (April 03, 2022 15:44:55)
[2022-04-03] MEDS: K-DUR TAB 20 MEQ PO SCH ×2 (22:01→22:04)
[2022-04-04] MEDS: LR 1,000 ML IV 1,000 ML IV SCH ×3 (02:30→10:03)
[2022-04-04] MEDS: ZOFRAN INJ 4 MG VIAL IVP PRN ×3 (02:31→21:07)
[2022-04-04] MEDS: MORPHINE SULFATE INJ 4 MG IVP PRN ×5 (02:31→21:07)
[2022-04-04 05:59] LABS: BASOPHILS # (AUTO) 0.1 X10^3/uL (0.0-0.1); BASOPHILS % (AUTO) 0.7 % (0.2-1.0); EOSINOPHILS # (AUTO) 0.2 x10^3/uL (0.0-0.2); EOSINOPHILS % (AUTO) 1.7 % (0.9-2.9); HEMATOCRIT 38.9 % (42.0-54.0); HEMOGLOBIN 13.1 g/dL (13.5-18.0); LYMPHOCYTES # (AUTO) 2.1 X10^3/uL (1.3-2.9); LYMPHOCYTES % (AUTO) 18.3 % (21.0-51.0); MEAN CORPUSCULAR HEMOGLOBIN 28.8 pg (27.0-34.0); MEAN CORPUSCULAR HGB CONC 33.6 g/dL (33.0-35.0); MEAN CORPUSCULAR VOLUME 85.8 fL (80.0-100.0); MEAN PLATELET VOLUME 7.2 fL (7.4-11.0); MONOCYTES % (AUTO) 8.5 % (0.0-13.0); NEUTROPHILS % (AUTO) 70.8 % (42.0-75.0); RED BLOOD COUNT 4.54 X10^6/uL (4.7-6.0); RED CELL DISTRIBUTION WIDTH 14.5 % (11.6-16.5); WHITE BLOOD COUNT 11.3 X10^3/uL (3.6-10.0)
[2022-04-04 06:27] LABS: BLOOD UREA NITROGEN 8 mg/dL (7-18); CALCIUM 8.2 mg/dL (8.5-10.1); CARBON DIOXIDE 25.7 mmol/L (21-32); CHLORIDE 101 mmol/L (98-107); COR NA(FOR HYPERGLY) 137 mmol/L (136-145); SODIUM 137 mmol/L (136-145); eGFR NON BLACK RACES > 60 (>60)
[2022-04-04] MEDS: K-DUR TAB 20 MEQ PO SCH (08:31)
[2022-04-04] MEDS: LOVENOX INJ 40 MG SYR SC SCH (08:40)
[2022-04-04] MEDS: PROTONIX INJ 40 MG VIAL IVP SCH (08:40)
[2022-04-04] MEDS ORDERED: DULCOLAX SUPPOSITORY 10 MG RECTAL ONE (10:32)
[2022-04-04] MEDS: LR IV SCH ×4 (10:54→23:53)
[2022-04-04] MEDS: POTASSIUM CHLORIDE IV SCH ×4 (10:54→23:53)
[2022-04-04] MEDS: OFIRMEV IV 1000 MG VIAL 1,000 MG/100 ML VIAL IV PRN (18:18)
[2022-04-05] MEDS: POTASSIUM CHLORIDE IV SCH ×4 (01:16→13:53)
[2022-04-05] MEDS: LR IV SCH ×4 (01:16→13:53)
[2022-04-05] MEDS: MORPHINE SULFATE INJ 4 MG IVP PRN ×5 (02:25→23:58)
[2022-04-05] MEDS: OFIRMEV IV 1000 MG VIAL 1,000 MG/100 ML VIAL IV PRN ×2 (03:58→21:40)
[2022-04-05 04:49] LABS: BASOPHILS % (AUTO) 0.4 % (0.2-1.0); EOSINOPHILS # (AUTO) 0.1 x10^3/uL (0.0-0.2); EOSINOPHILS % (AUTO) 1.3 % (0.9-2.9); HEMATOCRIT 40.7 % (42.0-54.0); HEMOGLOBIN 13.6 g/dL (13.5-18.0); LYMPHOCYTES # (AUTO) 1.4 X10^3/uL (1.3-2.9); LYMPHOCYTES % (AUTO) 12.1 % (21.0-51.0); MEAN CORPUSCULAR HGB CONC 33.4 g/dL (33.0-35.0); MEAN CORPUSCULAR VOLUME 86.7 fL (80.0-100.0); MEAN PLATELET VOLUME 6.9 fL (7.4-11.0); MONOCYTES % (AUTO) 8.1 % (0.0-13.0); NEUTROPHILS # (AUTO) 9.1 x10^3/uL (2.2-4.8); NEUTROPHILS % (AUTO) 78.1 % (42.0-75.0); RED BLOOD COUNT 4.69 X10^6/uL (4.7-6.0); RED CELL DISTRIBUTION WIDTH 14.4 % (11.6-16.5); WHITE BLOOD COUNT 11.7 X10^3/uL (3.6-10.0)
[2022-04-05 04:56] LABS: ALANINE AMINOTRANSFERASE 50 Units/L (12-78); ALBUMIN 2.5 g/dL (3.4-5.0); ALKALINE PHOSPHATASE 110 Units/L (46-116); ASPARTATE AMINO TRANSFERASE 21 Units/L (15-37); BLOOD UREA NITROGEN 6 mg/dL (7-18); CALCIUM 8.4 mg/dL (8.5-10.1); CARBON DIOXIDE 26.7 mmol/L (21-32); CHLORIDE 98 mmol/L (98-107); COR CA(FOR HYPOALB) 9.6 mg/dL (8.5-10.1); COR NA(FOR HYPERGLY) 135 mmol/L (136-145); CREATININE 0.78 mg/dL (0.70-1.30); SODIUM 135 mmol/L (136-145); TOTAL PROTEIN 6.9 g/dL (6.4-8.2); eGFR NON BLACK RACES > 60 (>60)
[2022-04-05] MEDS: LOVENOX INJ 40 MG SYR SC SCH (08:03)
[2022-04-05] MEDS: PROTONIX INJ 40 MG VIAL IVP SCH (08:03)
--- NOTE | 2022-04-05 13:39 | NOTE.SOAP ---
Soap Note Note for Day of Date of Exam: 04/05/22 Subjective Data Subjective Data: Still with no flatus, N G in place. Still receiving IV potassium Objective Data Temperature: 97.9 F Pulse Rate: 84 Respiratory Rate: 20 Blood Pressure: 146/90 O2 Sat by Pulse Oximetry: 95 Objective Data: WBC= 11.7, K+ = 3.8. Abdomen soft and not tender. Wound vacuum in place with good seal. Replace K+ Assessment Assessment: S/P laparotomy, lysis of adhesions and small bowel resection for small bowel obstruction with prolonged post op ileus Plan Plan: Replace K+, Will change wound vacuum tomorrow.
[2022-04-05] MEDS: ZOFRAN INJ 4 MG VIAL IVP PRN (19:47)
[2022-04-06] MEDS: LR IV SCH ×6 (03:10→04:55)
[2022-04-06] MEDS: POTASSIUM CHLORIDE IV SCH ×6 (03:10→04:55)
[2022-04-06] MEDS: VALIUM INJ IVP PRN (03:51)
[2022-04-06 05:01] LABS: BASOPHILS # (AUTO) 0.2 X10^3/uL (0.0-0.1); BASOPHILS % (AUTO) 1.3 % (0.2-1.0); EOSINOPHILS # (AUTO) 0.1 x10^3/uL (0.0-0.2); EOSINOPHILS % (AUTO) 0.6 % (0.9-2.9); HEMATOCRIT 38.9 % (42.0-54.0); HEMOGLOBIN 13.3 g/dL (13.5-18.0); LYMPHOCYTES # (AUTO) 1.3 X10^3/uL (1.3-2.9); LYMPHOCYTES % (AUTO) 8.6 % (21.0-51.0); MEAN CORPUSCULAR HEMOGLOBIN 29.4 pg (27.0-34.0); MEAN CORPUSCULAR HGB CONC 34.1 g/dL (33.0-35.0); MEAN CORPUSCULAR VOLUME 86.3 fL (80.0-100.0); MEAN PLATELET VOLUME 7.2 fL (7.4-11.0); MONOCYTES # (AUTO) 1.1 x10^3/uL (0.3-0.8); MONOCYTES % (AUTO) 7.5 % (0.0-13.0); NEUTROPHILS # (AUTO) 12.5 x10^3/uL (2.2-4.8); RED BLOOD COUNT 4.51 X10^6/uL (4.7-6.0); RED CELL DISTRIBUTION WIDTH 14.4 % (11.6-16.5); WHITE BLOOD COUNT 15.2 X10^3/uL (3.6-10.0)
[2022-04-06 05:15] LABS: ALANINE AMINOTRANSFERASE 40 Units/L (12-78); ALBUMIN 2.4 g/dL (3.4-5.0); ALKALINE PHOSPHATASE 110 Units/L (46-116); ASPARTATE AMINO TRANSFERASE 17 Units/L (15-37); BLOOD UREA NITROGEN 6 mg/dL (7-18); CALCIUM 8.4 mg/dL (8.5-10.1); CARBON DIOXIDE 20.7 mmol/L (21-32); CHLORIDE 96 mmol/L (98-107); COR CA(FOR HYPOALB) 9.7 mg/dL (8.5-10.1); COR NA(FOR HYPERGLY) 131 mmol/L (136-145); CREATININE 0.75 mg/dL (0.70-1.30); SODIUM 130 mmol/L (136-145); TOTAL PROTEIN 6.9 g/dL (6.4-8.2); eGFR NON BLACK RACES > 60 (>60)
[2022-04-06] MEDS: OFIRMEV IV 1000 MG VIAL 1,000 MG/100 ML VIAL IV PRN (05:27)
[2022-04-06] MEDS: LOVENOX INJ 40 MG SYR SC SCH (08:57)
[2022-04-06] MEDS: PROTONIX INJ 40 MG VIAL IVP SCH (08:57)
[2022-04-06] MEDS: MORPHINE SULFATE INJ 4 MG IVP PRN ×3 (09:48→20:19)
[2022-04-06] MEDS ORDERED: PHARMACY CONSULT - TPN XX SCH (15:00)
[2022-04-06] MEDS: ZOSYN VIAL 3.375 GRAMS 3.375 G in NS 100 ML IV 100 ML IV SCH ×2 (15:49→21:41)
[2022-04-06] MEDS: ZOFRAN INJ 4 MG VIAL IVP PRN (15:50)
--- NOTE | 2022-04-06 16:00 | RAD ---
Acute abdomen series supine upright and chest three views 4 imagesIndication: Abdominal distension and leukocytosis.Comparison April 03, 2022FINDINGSThere is elevation of the right hemidiaphragm with prominent heart size. No pneumothorax, effusion or dense consolidation seen. IVC filter noted. Gas stool are seen in the colon. Few mildly prominent loops of small-bowel are identified, with a dilated loop of bowel in the right abdomen not definitely colon. Tube tip projects to the left of the trachea. Given the previous radiograph, this may reflect NG tube, which would need to be repositioned. However if the patient is intubated, then the tube is definitely malposition.IMPRESSION1. Tube projecting over the upper chest, just to the left of the trachea, possibly reflecting the NG tube seen on the prior which was in the stomach which is no longer noted in the stomach. However, the type of tube is difficult to determine on this study, and if the patient has been intubated, this tube is definitely not in the trachea. Please correlate clinically.2. Mildly dilated loops of bowel, without gross free air or pneumatosis. Obstruction possible.Electronically signed by: GLORIA WRIGHT (April 06, 2022 15:59:45)
--- NOTE | 2022-04-06 16:51 | RAD ---
HISTORYNG TUBE PLACEMENTSTUDYKUBCOMPARISONMay 2021TECHNIQUEAP supine projection, 2 imagesFINDINGSEsophagogastric tube tip overlies the expected location of the body of the stomach.No gross free air.No abnormal calcifications.No acute osseous abnormality.IMPRESSIONEsophagogastric tube tip overlies the expected location of the body of the stomach.Electronically signed by: Fernando Elizondo (April 06, 2022 16:50:30)
[2022-04-06] MEDS: DULCOLAX SUPPOSITORY 10 MG RECTAL SCH (21:41)
--- NOTE | 2022-04-06 23:57 | NOTE.SOAP ---
Soap Note Note for Day of Date of Exam: 04/06/22 Subjective Data Subjective Data: Continue with no bowel function. Nurse today noted some confusion and he has a rise in the WBC to 15 k. Patient alert and oriented Objective Data Temperature: 98.9 F Pulse Rate: 98 Respiratory Rate: 22 Blood Pressure: 132/95 O2 Sat by Pulse Oximetry: 96 Objective Data: NG output is more feculent. Abdomen distended and not tender. Wound vacuum changed and both open areas with early granulation tissue. No further purulent drainage from the wound. Patient alert and oriented by my exam. Nurse noted that he has been " talking out of his head" Assessment Assessment: SBO , s/p operation. Evidence post op ileus. Rising WBC Plan Plan: Begin Zosyn, blood cultures Continue NG tube. Will need TPN. MAy need CT scan to help evaluate if he has persistent small bowel obstruction.
[2022-04-07] MEDS: LR IV SCH ×4 (00:29→03:54)
[2022-04-07] MEDS: POTASSIUM CHLORIDE IV SCH ×4 (00:29→03:54)
[2022-04-07] MEDS: ZOSYN VIAL 3.375 GRAMS 3.375 G in NS 100 ML IV 100 ML IV SCH ×4 (03:20→21:51)
[2022-04-07] MEDS: OFIRMEV IV 1000 MG VIAL 1,000 MG/100 ML VIAL IV PRN (04:32)
--- NOTE | 2022-04-07 05:24 | RAD ---
HISTORYASSESS FOR FLUID OVERLOAD SBOSTUDYCHEST, 1 [id number]/08/2022FINDINGSThe trachea is midline. Nasogastric tube tip in the proximal stomach. The tube could be further advanced for more optimal placement. The cardiac silhouette is unremarkable. There is persistent elevation of the right hemidiaphragm the lungs are clear without focal infiltrate or effusion. The bony thorax is unremarkable.IMPRESSIONNG tube tip in the proximal stomach; the tube could be further advanced for more optimal placement.No active cardiopulmonary disease.Electronically signed by: Carroll Levin (April 07, 2022 05:22:31)
[2022-04-07] MEDS: LOVENOX INJ 40 MG SYR SC SCH (08:53)
[2022-04-07] MEDS: DULCOLAX SUPPOSITORY 10 MG RECTAL SCH ×2 (08:53→20:44)
[2022-04-07] MEDS: PROTONIX INJ 40 MG VIAL IVP SCH (08:54)
[2022-04-07] MEDS ORDERED: LR 1,000 ML IV 1,000 ML IV SCH (14:00)
[2022-04-07] MEDS ORDERED: DRUG FILTER EXTENSION SET ONE (16:20)
[2022-04-07] MEDS: MORPHINE SULFATE INJ 4 MG IVP PRN (16:32)
[2022-04-07] MEDS: MVI IV SCH ×5 (18:09)
[2022-04-07] MEDS: CLINIMIX IV SCH ×5 (18:09)
[2022-04-07] MEDS: TPN ELECTROLYTES IV SCH ×5 (18:09)
[2022-04-07] MEDS: [UNRECOGNIZED DRUG - OTHER] IV SCH ×5 (18:09)
[2022-04-07] MEDS ORDERED: CITROMA PO ONE (18:10)
--- NOTE | 2022-04-07 18:30 | NOTE.SOAP ---
Soap Note Note for Day of Date of Exam: 04/07/22 Subjective Data Subjective Data: Patient noted last night to have gurgling sounds with breathing . Chest x-ray showed no evidence of failure and no infiltrates. BNP was normal. It appeared most of the problems were upper Airway. This resolved when he pulled the nasogastric tube out. It was left out and this morning he is passing flatus . He was started on a clear liquid diet and is tolerating that. Objective Data Temperature: 97.6 F Pulse Rate: 82 Respiratory Rate: 20 Blood Pressure: 135/87 O2 Sat by Pulse Oximetry: 95 Objective Data: Talking softly and appears weak but is alert and oriented x 3 . Assessment Assessment: S/P laparotomy with extensive lysis of adhesions and resection of obstructed small bowel x 2 secondary to involvement with intra-abdominal mesh. Prolonged ileus appears oscar be resolving . Wound infection being treated with wound vacuum and IV antibiotics. Plan Plan: Continue to advance diet. If tolerating diet will be discharged soon to [facility]. Will need to make arrangements for the wound vacuum. Check AM labs.
[2022-04-07] MEDS ORDERED: NS 500 ML IV 500 ML IV ONE (20:29)
[2022-04-07] MEDS ORDERED: NS 500 ML IV 500 ML IV PRN (20:45)
[2022-04-07] MEDS: PERCOCET TAB 5/325 MG PO PRN (21:57)
[2022-04-07] MEDS: ZOFRAN INJ 4 MG VIAL IVP PRN (22:39)
[2022-04-08] MEDS: ZOSYN VIAL 3.375 GRAMS 3.375 G in NS 100 ML IV 100 ML IV SCH ×4 (02:47→21:30)
[2022-04-08] MEDS: TPN ELECTROLYTES IV SCH ×20 (02:48→22:43)
[2022-04-08] MEDS: MVI IV SCH ×20 (02:48→22:43)
[2022-04-08] MEDS: [UNRECOGNIZED DRUG - OTHER] IV SCH ×20 (02:48→22:43)
[2022-04-08] MEDS: CLINIMIX IV SCH ×20 (02:48→22:43)
[2022-04-08 05:27] LABS: BASOPHILS # (AUTO) 0.1 X10^3/uL (0.0-0.1); EOSINOPHILS # (AUTO) 0.1 x10^3/uL (0.0-0.2); EOSINOPHILS % (AUTO) 0.6 % (0.9-2.9); HEMATOCRIT 41.9 % (42.0-54.0); HEMOGLOBIN 14.5 g/dL (13.5-18.0); LYMPHOCYTES # (AUTO) 1.8 X10^3/uL (1.3-2.9); LYMPHOCYTES % (AUTO) 12.2 % (21.0-51.0); MEAN CORPUSCULAR HEMOGLOBIN 29.7 pg (27.0-34.0); MEAN CORPUSCULAR HGB CONC 34.5 g/dL (33.0-35.0); MEAN CORPUSCULAR VOLUME 85.9 fL (80.0-100.0); MEAN PLATELET VOLUME 7.1 fL (7.4-11.0); MONOCYTES # (AUTO) 1.3 x10^3/uL (0.3-0.8); NEUTROPHILS # (AUTO) 11.1 x10^3/uL (2.2-4.8); NEUTROPHILS % (AUTO) 77.2 % (42.0-75.0); RED BLOOD COUNT 4.88 X10^6/uL (4.7-6.0); RED CELL DISTRIBUTION WIDTH 14.8 % (11.6-16.5); WHITE BLOOD COUNT 14.4 X10^3/uL (3.6-10.0)
[2022-04-08 05:30] LABS: BLOOD UREA NITROGEN 12 mg/dL (7-18); CALCIUM 9.1 mg/dL (8.5-10.1); CHLORIDE 96 mmol/L (98-107); COR NA(FOR HYPERGLY) 134 mmol/L (136-145); CREATININE 0.93 mg/dL (0.70-1.30); SODIUM 133 mmol/L (136-145); eGFR NON BLACK RACES > 60 (>60)
[2022-04-08] MEDS: MILK OF MAGNESIA PO PRN ×2 (05:43→21:30)
[2022-04-08] MEDS: LOVENOX INJ 40 MG SYR SC SCH (09:30)
[2022-04-08] MEDS: PROTONIX INJ 40 MG VIAL IVP SCH (09:30)
[2022-04-08] MEDS: ZOFRAN INJ 4 MG VIAL IVP PRN ×3 (09:34→22:54)
[2022-04-08] MEDS: DULCOLAX SUPPOSITORY 10 MG RECTAL SCH ×2 (11:31→22:24)
[2022-04-08] MEDS: TYLENOL 325 MG TAB PO PRN (21:30)
[2022-04-08] MEDS ORDERED: DRUG FILTER EXTENSION SET ONE (21:35)
--- NOTE | 2022-04-08 23:41 | NOTE.SOAP ---
Soap Note Note for Day of Date of Exam: 04/08/22 Subjective Data Subjective Data: NG tube remains out. Taking soft diet with some vomiting. Positive blood culute x 1 , no ID or sensitivities yet . Objective Data Temperature: 98.4 F Pulse Rate: 93 Respiratory Rate: 18 Blood Pressure: 129/82 O2 Sat by Pulse Oximetry: 94 Objective Data: Lungs clear, Abdomen soft and mildly distended and not tender. Woiund vacuum in place with minimal outout and no evidence purulence. Assessment Assessment: SBO, s/p laparotomy and resection small bowel( 2 segments) with ileus most likely secondary to + blood culture. Plan Plan: Continue IV antibiotics and fluids . May need CT of abdomen and pelvis looking for source of ileus vs possible recurrent bowel obstruction
[2022-04-09] MEDS: ZOSYN VIAL 3.375 GRAMS 3.375 G in NS 100 ML IV 100 ML IV SCH ×4 (03:00→21:00)
[2022-04-09 05:46] LABS: BASOPHILS # (AUTO) 0.1 X10^3/uL (0.0-0.1); BASOPHILS % (AUTO) 0.5 % (0.2-1.0); EOSINOPHILS # (AUTO) 0.1 x10^3/uL (0.0-0.2); EOSINOPHILS % (AUTO) 1.1 % (0.9-2.9); HEMATOCRIT 41.6 % (42.0-54.0); HEMOGLOBIN 14.1 g/dL (13.5-18.0); LYMPHOCYTES # (AUTO) 1.6 X10^3/uL (1.3-2.9); LYMPHOCYTES % (AUTO) 12.6 % (21.0-51.0); MEAN CORPUSCULAR HEMOGLOBIN 28.8 pg (27.0-34.0); MEAN CORPUSCULAR HGB CONC 33.8 g/dL (33.0-35.0); MEAN CORPUSCULAR VOLUME 85.2 fL (80.0-100.0); MONOCYTES # (AUTO) 1.1 x10^3/uL (0.3-0.8); MONOCYTES % (AUTO) 8.3 % (0.0-13.0); NEUTROPHILS # (AUTO) 9.8 x10^3/uL (2.2-4.8); NEUTROPHILS % (AUTO) 77.5 % (42.0-75.0); RED BLOOD COUNT 4.88 X10^6/uL (4.7-6.0); RED CELL DISTRIBUTION WIDTH 14.4 % (11.6-16.5); WHITE BLOOD COUNT 12.6 X10^3/uL (3.6-10.0)
[2022-04-09 05:59] LABS: ALANINE AMINOTRANSFERASE 28 Units/L (12-78); ALBUMIN 2.4 g/dL (3.4-5.0); ALKALINE PHOSPHATASE 111 Units/L (46-116); ASPARTATE AMINO TRANSFERASE 17 Units/L (15-37); BLOOD UREA NITROGEN 16 mg/dL (7-18); CALCIUM 8.6 mg/dL (8.5-10.1); CARBON DIOXIDE 30.9 mmol/L (21-32); CHLORIDE 97 mmol/L (98-107); COR CA(FOR HYPOALB) 9.9 mg/dL (8.5-10.1); COR NA(FOR HYPERGLY) 135 mmol/L (136-145); CREATININE 1.01 mg/dL (0.70-1.30); SODIUM 134 mmol/L (136-145); TOTAL PROTEIN 7.3 g/dL (6.4-8.2); eGFR NON BLACK RACES > 60 (>60)
--- NOTE | 2022-04-09 06:03 | RAD ---
HISTORYSMALL BOWEL OBSTRUCTION Relevant Clinical InformationSTUDYACUTE ABDOMEN SERIESCOMPARISONFINDINGSThe trachea is midline. The cardiac silhouette is [unremarkable]. [The lungs are clear without focal mass or consolidation. There is persistent elevation of the right hemidiaphragm. No pneumothorax. There is no effusion or pneumothorax.] [The bony thorax is unremarkable].Flat plate and upright evaluation of the abdomen demonstrates mildly dilated loops of bowel unchanged from prior study.]. There is no pneumoperitoneum. No pathological soft tissue mass or calcification can be observed. The bony structures are grossly intact.IMPRESSIONStable radiographs of the chest and abdomen; no significant change from 04/06/2022Electronically signed by: Carroll Levin (April 09, 2022 06:02:46)
[2022-04-09] MEDS: LOVENOX INJ 40 MG SYR SC SCH (10:00)
[2022-04-09] MEDS: PROTONIX INJ 40 MG VIAL IVP SCH (10:00)
[2022-04-09] MEDS: TPN ELECTROLYTES IV SCH ×10 (11:24→21:00)
[2022-04-09] MEDS: CLINIMIX IV SCH ×10 (11:24→21:00)
[2022-04-09] MEDS: [UNRECOGNIZED DRUG - OTHER] IV SCH ×10 (11:24→21:00)
[2022-04-09] MEDS: MVI IV SCH ×10 (11:24→21:00)
[2022-04-09] MEDS: DULCOLAX SUPPOSITORY 10 MG RECTAL SCH ×2 (11:25→21:00)
[2022-04-09] MEDS: TYLENOL 325 MG TAB PO PRN (11:28)
--- NOTE | 2022-04-09 23:14 | NOTE.SOAP ---
Soap Note Note for Day of Date of Exam: 04/09/22 Subjective Data Subjective Data: Passing significant flatus. Started on soft diet and is tolerating well. Having bowel movements. Abdominal films still showing some dilated small bowel. On IV antibiotics for positive blood culture. Wound with wound vacuum in place Objective Data Temperature: 97.8 F Pulse Rate: 76 Respiratory Rate: 20 Blood Pressure: 122/77 O2 Sat by Pulse Oximetry: 98 Objective Data: Abdomen is soft and noivities not back yetr. tympninic Assessment Assessment: S/p laparotomy with lysis of extensive adhesions and resection of small bowel x 2 with reanastamosis. Plan Plan: D/C IVFS tomorrow and change wound vacuum tomorrow. Will transition to po antibiotics when sensitivities are back. Hopefully d/c to [facility] soon. Diptheroids are often contaminants .
[2022-04-09] MEDS ORDERED: CITROMA PO ONE (23:36)
[2022-04-10] MEDS: ZOFRAN INJ 4 MG VIAL IVP PRN (07:51)
[2022-04-10] MEDS: CIPRO TAB 500 MG PO SCH ×2 (09:11→22:16)
[2022-04-10] MEDS: PROTONIX INJ 40 MG VIAL IVP SCH (09:11)
[2022-04-10] MEDS: LOVENOX INJ 40 MG SYR SC SCH (09:12)
[2022-04-10] MEDS: DULCOLAX SUPPOSITORY 10 MG RECTAL SCH ×2 (09:12→22:17)
[2022-04-10] MEDS: TYLENOL 325 MG TAB PO PRN (09:14)
[2022-04-10] MEDS: FIBERCON or FIBER-LAX PO SCH ×2 (10:30→22:16)
[2022-04-10] MEDS ORDERED: DRUG FILTER EXTENSION SET ONE (17:47)
[2022-04-10] MEDS: [UNRECOGNIZED DRUG - REMARK] IV SCH ×4 (22:15)
[2022-04-10] MEDS: OFIRMEV IV 1000 MG VIAL 1,000 MG/100 ML VIAL IV PRN (22:17)
[2022-04-11 05:14] LABS: ALANINE AMINOTRANSFERASE 23 Units/L (12-78); ALBUMIN 2.3 g/dL (3.4-5.0); ALKALINE PHOSPHATASE 103 Units/L (46-116); ASPARTATE AMINO TRANSFERASE 15 Units/L (15-37); BLOOD UREA NITROGEN 13 mg/dL (7-18); CARBON DIOXIDE 26.2 mmol/L (21-32); CHLORIDE 99 mmol/L (98-107); COR CA(FOR HYPOALB) 9.4 mg/dL (8.5-10.1); COR NA(FOR HYPERGLY) 135 mmol/L (136-145); CREATININE 0.86 mg/dL (0.70-1.30); SODIUM 134 mmol/L (136-145); TOTAL PROTEIN 6.6 g/dL (6.4-8.2); eGFR NON BLACK RACES > 60 (>60)
[2022-04-11 05:40] LABS: BASOPHILS # (AUTO) 0.1 X10^3/uL (0.0-0.1); BASOPHILS % (AUTO) 1.3 % (0.2-1.0); EOSINOPHILS # (AUTO) 0.2 x10^3/uL (0.0-0.2); EOSINOPHILS % (AUTO) 2.2 % (0.9-2.9); HEMATOCRIT 38.1 % (42.0-54.0); HEMOGLOBIN 12.9 g/dL (13.5-18.0); LYMPHOCYTES # (AUTO) 1.7 X10^3/uL (1.3-2.9); LYMPHOCYTES % (AUTO) 16.1 % (21.0-51.0); MEAN CORPUSCULAR HEMOGLOBIN 29.1 pg (27.0-34.0); MEAN CORPUSCULAR HGB CONC 33.9 g/dL (33.0-35.0); MEAN CORPUSCULAR VOLUME 85.7 fL (80.0-100.0); MONOCYTES % (AUTO) 9.4 % (0.0-13.0); NEUTROPHILS # (AUTO) 7.6 x10^3/uL (2.2-4.8); RED BLOOD COUNT 4.45 X10^6/uL (4.7-6.0); RED CELL DISTRIBUTION WIDTH 14.4 % (11.6-16.5); WHITE BLOOD COUNT 10.7 X10^3/uL (3.6-10.0)
[2022-04-11] MEDS: [UNRECOGNIZED DRUG - REMARK] IV SCH ×4 (08:37)
[2022-04-11] MEDS: DULCOLAX SUPPOSITORY 10 MG RECTAL SCH (08:40)
[2022-04-11] MEDS: FIBERCON or FIBER-LAX PO SCH (08:41)
[2022-04-11] MEDS: PROTONIX INJ 40 MG VIAL IVP SCH (10:00)
[2022-04-11] MEDS: CIPRO TAB 500 MG PO SCH (10:00)
[2022-04-11] MEDS: LOVENOX INJ 40 MG SYR SC SCH (10:23)
--- NOTE | 2022-04-11 10:28 | W.DIS.FURT ---
Summary of Discharge Discharge Summary of Date Date of Exam: 04/11/22 Admission Date Date of Admission: 03/23/22 Admission Diagnosis Patient Problems (Updated 03/23/22 @ 16:52 by RAVINDRA GALVAN) Small bowel obstruction (Acute) K56.609 Hospital Course: 67 year old male currently in [facility] in the [facility] who had presented multiple times with small bowel obstructions which resolved with naso gastric decompression. He has a past history of multiple abdominal surgeries to repair an abdominal wall hernia with mesh in the abdominal wall. This time he was admitted with small bowel obstruction which did not resolve with conservative management. Date of admission was March 23. On March 26 he was taken to the operating Suite where he underwent laparotomy with lysis of extensive adhesions and resection of two areas of small bowel which were adhered to and obstructed by the abdominal mesh. Post-operatively he has had a long course, complicated by prolonged ileus and a wound infection requiring opening of the abdominal wound. The fascia remained intact and he was treated with a wound VAC. He has remained afebrile with stable vital signs the entire time but had an episode of incr easing fusion and subsequent blood cultures grew diptheroids . He is doing better now, tolerating a diet and having regular bowel movements. He will be discharged today to the local [facility] and he will continue his Metamucil, Percocet for pain, potassium supplementation as well as Cipro 500 mg BID. He will follow up with me in one week. They wound vacuum has been discontinued and he will undergo wet to dry dressings of the abdominal wall until it is healed. Vital Signs: Vital Signs (72 hours) 04/08/22 12:00 04/08/22 16:00 04/08/22 20:00 Temperature 98.1 F 98.0 F 98.4 F Pulse Rate Pulse Rate [Left Brachial] 96 H 103 H 93 H Respiratory Rate 18 20 18 Blood Pressure Blood Pressure [Left Arm] Blood Pressure [Right Arm] 129/87 128/83 129/82 O2 Sat by Pulse Oximetry 94 L 93 L 94 L 04/08/22 21:30 04/08/22 22:30 04/08/22 23:40 Temperature 98.5 F Pulse Rate Pulse Rate [Left Brachial] 85 Respiratory Rate 20 20 20 Blood Pressure Blood Pressure [Left Arm] 122/79 Blood Pressure [Right Arm] O2 Sat by Pulse Oximetry 94 L 04/08/22 23:41 04/09/22 03:36 04/09/22 08:00 Temperature 98.4 F 97.9 F 97.9 F Pulse Rate 93 H Pulse Rate [Left Brachial] 83 70 Respiratory Rate 18 18 20 Blood Pressure 129/82 Blood Pressure [Left Arm] 120/85 131/82 Blood Pressure [Right Arm] O2 Sat by Pulse Oximetry 94 L 94 L 94 L 04/09/22 11:28 04/09/22 12:00 04/09/22 12:28 Temperature 97.5 F L Pulse Rate Pulse Rate [Left Brachial] 79 Respiratory Rate 20 18 20 Blood Pressure Blood Pressure [Left Arm] 128/75 Blood Pressure [Right Arm] O2 Sat by Pulse Oximetry 97 04/09/22 16:00 04/09/22 20:00 04/09/22 23:14 Temperature 97.8 F 97.6 F 97.8 F Pulse Rate 76 Pulse Rate [Left Brachial] 76 88 Respiratory Rate 20 20 20 Blood Pressure 122/77 Blood Pressure [Left Arm] 122/77 119/76 Blood Pressure [Right Arm] O2 Sat by Pulse Oximetry 98 95 98 04/10/22 00:00 04/10/22 04:00 04/10/22 08:00 Temperature 98 F 97.5 F L 98.2 F Pulse Rate Pulse Rate [Left Brachial] 74 79 77 Respiratory Rate 20 20 20 Blood Pressure Blood Pressure [Left Arm] 120/98 111/70 127/79 Blood Pressure [Right Arm] O2 Sat by Pulse Oximetry 95 95 95 04/10/22 09:14 04/10/22 09:45 04/10/22 10:14 Temperature Pulse Rate 76 Pulse Rate [Left Brachial] Respiratory Rate 18 18 Blood Pressure Blood Pressure [Left Arm] Blood Pressure [Right Arm] O2 Sat by Pulse Oximetry 95 04/10/22 12:00 04/10/22 16:00 04/10/22 20:00 Temperature 97.5 F L 97.9 F 98.0 F Pulse Rate Pulse Rate [Left Brachial] 87 83 82 Respiratory Rate 20 20 20 Blood Pressure Blood Pressure [Left Arm] 120/73 129/64 Blood Pressure [Right Arm] 120/74 O2 Sat by Pulse Oximetry 96 95 95 04/11/22 00:00 04/11/22 04:00 04/11/22 08:00 Temperature 97.8 F 98.1 F 97.8 F Pulse Rate Pulse Rate [Left Brachial] 83 80 76 Respiratory Rate 18 18 20 Blood Pressure Blood Pressure [Left Arm] 123/72 119/71 133/75 Blood Pressure [Right Arm] O2 Sat by Pulse Oximetry 95 95 95 Labs: Laboratory Last Values WBC 10.7 X10^3/uL (3.6-10.0) H 04/11/22 04:40 RBC 4.45 X10^6/uL (4.7-6.0) L 04/11/22 04:40 Hgb 12.9 g/dL (13.5-18.0) L 04/11/22 04:40 Hct 38.1 % (42.0-54.0) L 04/11/22 04:40 MCV 85.7 fL (80.0-100.0) 04/11/22 04:40 MCH 29.1 pg (27.0-34.0) 04/11/22 04:40 MCHC 33.9 g/dL (33.0-35.0) 04/11/22 04:40 RDW 14.4 % (11.6-16.5) 04/11/22 04:40 Plt Count 621 X10^3/uL (150.0-450.0) H 04/11/22 04:40 Plt Count Comment Increased (ADEQUATE) 03/30/22 04:51 MPV 7.0 fL (7.4-11.0) L 04/11/22 04:40 Neut % (Auto) 71.0 % (42.0-75.0) 04/11/22 04:40 Lymph % (Auto) 16.1 % (21.0-51.0) L 04/11/22 04:40 Hayes % (Auto) 9.4 % (0.0-13.0) 04/11/22 04:40 Eos % (Auto) 2.2 % (0.9-2.9) 04/11/22 04:40 Baso % (Auto) 1.3 % (0.2-1.0) H 04/11/22 04:40 Neut # (Auto) 7.6 x10^3/uL (2.2-4.8) H 04/11/22 04:40 Lymph # (Auto) 1.7 X10^3/uL (1.3-2.9) 04/11/22 04:40 Hayes # (Auto) 1.0 x10^3/uL (0.3-0.8) H 04/11/22 04:40 Eos # (Auto) 0.2 x10^3/uL (0.0-0.2) 04/11/22 04:40 Baso # (Auto) 0.1 X10^3/uL (0.0-0.1) 04/11/22 04:40 Absolute Nucleated RBC 0.1 /100WBC 04/11/22 04:40 Total Counted 100 03/30/22 04:51 Neutrophils % (Manual) 73 % (39-76) 03/30/22 04:51 Lymphocytes % (Manual) 11 % (13-43) L 03/30/22 04:51 Monocytes % (Manual) 12 % (4-9) H 03/30/22 04:51 Eosinophils % (Manual) 4 % (0-6) 03/30/22 04:51 Plt Morphology Comment Normal (NORMAL) 03/30/22 04:51 RBC Morphology Normal (NORMAL) 03/30/22 04:51 Sodium 134 mmol/L (136-145) L 04/11/22 04:40 Corrected Sodium 135 mmol/L (136-145) L 04/11/22 04:40 Potassium 3.6 mmol/L (3.5-5.1) 04/11/22 04:40 Chloride 99 mmol/L (98-107) 04/11/22 04:40 Carbon Dioxide 26.2 mmol/L (21-32) 04/11/22 04:40 BUN 13 mg/dL (7-18) 04/11/22 04:40 Creatinine 0.86 mg/dL (0.70-1.30) 04/11/22 04:40 Est GFR (MDRD) Af Amer > 60 (>60) 04/11/22 04:40 Est GFR (MDRD) Non-Af > 60 (>60) 04/11/22 04:40 Glucose 138 mg/dL (65-99) H 04/11/22 04:40 POC Glucose (mg/dL) 141 mg/dL (65-99) H 04/11/22 05:26 Calcium 8.0 mg/dL (8.5-10.1) L 04/11/22 04:40 Corrected Calcium 9.4 mg/dL (8.5-10.1) 04/11/22 04:40 Magnesium 2.2 mg/dL (1.7-2.9) 04/01/22 05:34 Total Bilirubin 0.30 mg/dL (0.2-1.0) 04/11/22 04:40 AST 15 Units/L (15-37) 04/11/22 04:40 ALT 23 Units/L (12-78) 04/11/22 04:40 Alkaline Phosphatase 103 Units/L (46-116) 04/11/22 04:40 B-Natriuretic Peptide 41.7 pg/mL (0-79) 04/07/22 00:16 Total Protein 6.6 g/dL (6.4-8.2) 04/11/22 04:40 Albumin 2.3 g/dL (3.4-5.0) L 04/11/22 04:40 Globulin 4.3 g/dL (2.5-4.5) 04/11/22 04:40 Albumin/Globulin Ratio 0.5 Ratio (1.1-2.1) L 04/11/22 04:40 SARS-CoV-2 (PCR) Negative (NEGATIVE) 03/23/22 16:05 Tissue Pathology To follow 03/26/22 17:50 Reason For Visit: SMALL BOWEL OBSTRUCTION Discharge Date Discharge Date: 04/11/22 Discharge Diagnosis All Active Problems (Updated 03/23/22 @ 16:52 by RAVINDRA GALVAN) Small bowel obstruction (Acute) Nausea & vomiting (Acute) Plan of Treatment: Continue with present treatment and follow up plan. Pt is to keep follow up appointment as instructed and take medications as ordered. Discharge Medications Discharge Medications: No Known Drug Allergies Allergy (Verified 12/24/21 15:03) CONTINUE taking the following medications fiber 1 tab PO BID 03/23/22 [History] hydrochlorothiazide 12.5 mg PO DAILY 03/23/22 [History] polyethylene glycol 3350 [Miralax] 17 g PO DAILY 03/23/22 [History] promethazine 25 mg PO DAILY PRN 03/23/22 [History] New Prescriptions ciprofloxacin HCl [Cipro] 500 mg PO BID #60 tab 04/11/22 [Rx] pantoprazole [Protonix] 40 mg PO ONCE #30 tab 04/11/22 [Rx] potassium chloride 40 meq PO ONCE #30 ml 04/11/22 [Rx] Follow up and Referral Follow Up: 1 Week (dr. Joseph) Discharge Disposition Discharge Disposition: Patient to go to [facility] where wound care will be continued as wet to dry dressings Discharge Plan Discharge Plan Hospital Course: 67 year old male currently in [facility] in the [facility] who had presented multiple times with small bowel obstructions which resolved with naso gastric decompression. He has a past history of multiple abdominal surgeries to repair an abdominal wall hernia with mesh in the abdominal wall. This time he was admitted with small bowel obstruction which did not resolve with conservative management. Date of admission was March 23. On March 26 he was taken to the operating Suite where he underwent laparotomy with lysis of extensive adhesions and resection of two areas of small bowel which were adhered to and obstructed by the abdominal mesh. Post-operatively he has had a long course, complicated by prolonged ileus and a wound infection requiring opening of the abdominal wound. The fascia remained intact and he was treated with a wound VAC. He has remained afebrile with stable vital signs the entire time but had an episode of increasing fusion and subsequent blood cultures grew diptheroids . He is doing better now, tolerating a diet and having regular bowel movements. He will be discharged today to the local [facility] and he will continue his Metamucil, Percocet for pain, potassium supplementation as well as Cipro 500 mg BID. He will follow up with me in one week. They wound vacuum has been discontinued and he will undergo wet to dry dressings of the abdominal wall until it is healed. Patient Disposition: D/C with law/court enforcement Condition: Stable Health Concerns: Post Hospitalization: new medications and changes needed to prevent readmission or further decline. Pt educated and given instructions on all concerns. Care Plan Goals: Problem: Pain/Alteration in Comfort Goal: Improve/ Resolve Pain; Achieve Pain Tolerance Instructions: Take pain medications as prescribed. Contact your primary care provider if your pain is unrelieved or worsens. Follow up with primary care provider as directed. Plan of Treatment: Continue with present treatment and follow up plan. Pt is to keep follow up appointment as instructed and take medications as ordered. Prescription drug monitoring program results: PDMP was not reviewed Prescriptions: New potassium chloride 40 mEq/15 mL Liquid 40 meq PO ONCE Qty: 30 RF: 0 pantoprazole [Protonix] 40 mg Tablet,Delayed Release (Dr/Ec) 40 mg PO ONCE Qty: 30 RF: 0 ciprofloxacin HCl [Cipro] 500 mg Tablet 500 mg PO BID Qty: 60 RF: 0 Continued polyethylene glycol 3350 [Miralax] 17 gram Powder In Packet 17 g PO DAILY RF: 0 promethazine 25 mg Tablet 25 mg PO DAILY PRN (Reason: Nausea) RF: 0 fiber Tablet 1 tab PO BID RF: 0 hydrochlorothiazide 12.5 mg Tablet 12.5 mg PO DAILY RF: 0 Follow ups/Referrals Follow ups/Referrals: Gorge Joseph [STAFF PHYSICIAN] - 04/16/22 10:00 am Instructions Instructions: Nausea, Adult, Bowel Obstruction, [id number], Nausea and Vomiting, Adult, Nausea and Vomiting, Adult, Dbgh-px-[id number], Nausea, Adult, [id number], Small Bowel Obstruction Stand Alone Forms: Excuse From Work or School, Precautions for COVID19, [facility], Patient Portal, Social Distancing Patient Education Addl Reference Links: Small bowel obstruction [email or web address]&patientPerson .administrativeGenderCode.c=M&patientPerson.administrativeGenderCode.dn=Male&age .v.v=65&age.v.u=a&performer=PROV&informa tionRecipient=PAT&performer.languageCode.c=en&mainSearchCriteria.v.r=[id number]&m ainSearchCriteria.v.cs=2..[id number]&mainSearchCriteria.v.dn=Small%2Bbo wel%2Bobstruction&mainSearchCriteria.v.c 1=560.9&mainSearchCriteria.v.cs1=[id number]&mainSearchCriteria.v.dn 1=Small%2Bbowel%2Bobstruction&mainSearchCriteria.v.c2=K56.609&mainSearchCriteria .v.cs2=[id number]&mainSearch Criteria.v.dn2=Small%2Bbowel%2Bobstruction&mainSearchCriteria.v.c3=33&mainSearch Criteria.v.dn3=Small%2Bbowel%2Bobstruction&f=[id number] 1
--- NOTE | 2022-04-25 10:32 | NOTE.SOAP ---
Soap Note Note for Day of Date of Exam: 05/05/22 Subjective Data Subjective Data: S/p laparotomy for small bowel obstruction with complication of wound infection . Wound vacuum placed yesterday. NG tube still in place Objective Data Temperature: 98.3 F Pulse Rate: 76 Respiratory Rate: 20 Blood Pressure: 135/79 O2 Sat by Pulse Oximetry: 96 Objective Data: Still with Ileus. NG in place . Wound vacuum in place on abdomen Assessment Assessment: Small bowel obstruction, wound infection midline abdomen , post op ileus Plan Plan: Continue wound vacuum and NG tube . Await return of bowel function.
[2022-04-25 10:37] VITALS: BP 135/79
--- NOTE | 2022-04-25 10:37 | NOTE.SOAP ---
Soap Note Note for Day of Date of Exam: 04/04/22 Subjective Data Subjective Data: Addnedum dated 05/05/2022 is incorrect. Date of addendum is 04/04/2022 not 05/05/2022.
--- NOTE | 2022-04-25 10:45 | NOTE.SOAP ---
Soap Note Note for Day of Date of Exam: 04/10/22 Subjective Data Subjective Data: S/p laparotomy for SBO. Improved . Taking diet . Having bowel movements . Wound vacuum removed as he is going to [facility] and that technology is not available . Will do vasquez to dry dressings Objective Data Temperature: 98.3 F Pulse Rate: 76 Respiratory Rate: 20 Blood Pressure: 135/79 O2 Sat by Pulse Oximetry: 96 Objective Data: As above . Doing well Assessment Assessment: SBO resolved Plan Plan: Discharge to [facility] tomorrow.
== END 2022-04-11 12:00 | DRG 327 ==
LOC: ER 12:36 → MED/SURG 16:57 → ICU 03-26 19:54 → MED/SURG 03-29 14:28
PROVIDERS: ADMIT Surgery; ATTEND Surgery
DX: K56.600 Partial intestinal obstruction, unspecified as to cause; I10 Essential (primary) hypertension; R41.0 Disorientation, unspecified; Z87.19 Personal history of other diseases of the digestive system; T81.49XA Infection following a procedure, other surgical site, initial encounter; K91.89 Other postprocedural complications and disorders of digestive system; R06.02 Shortness of breath; K56.7 Ileus, unspecified; B96.89 Other specified bacterial agents as the cause of diseases classified elsewhere; L08.89 Other specified local infections of the skin and subcutaneous tissue; Z90.49 Acquired absence of other specified parts of digestive tract; R26.81 Unsteadiness on feet; K56.51 Intestinal adhesions [bands], with partial obstruction; E87.6 Hypokalemia; Z20.822 Contact with and (suspected) exposure to COVID-19; F41.9 Anxiety disorder, unspecified

== ENCOUNTER 2025-10-31 07:38 | Inpatient (IN) ==
[2025-10-31 08:02] LABS: RED CELL DISTRIBUTION WIDTH 14.4 % (11.6-16.5)
[2025-10-31 08:05] LABS: MEAN PLATELET VOLUME 7.1 fL (7.4-11.0)
[2025-10-31 08:14] LABS: COR NA(FOR HYPERGLY) 142 mmol/L (136-145); CREATININE 0.98 mg/dL (0.70-1.30); eGFR NON BLACK RACES > 60 (>60)
[2025-10-31 09:00] LABS: INR 1.02 (0.8-1.3)
--- NOTE | 2025-10-31 09:00 | EKG ---
Test Reason : abd pain Blood Pressure : */* mmHG Vent. Rate : 58 BPM Atrial Rate : 58 BPM P-R Int : 148 ms QRS Dur : 80 ms QT Int : 400 ms P-R-T Axes : -4 -15 54 degrees QTc Int : 392 ms Sinus bradycardia Otherwise normal ECG No previous ECGs available Confirmed by Shadi Cho MD ([id number]) on 11/01/2025 7:21:44 AM Referred By: Confirmed By: Shadi Cho MD
--- NOTE | 2025-10-31 09:24 | CT ---
EXAM: CT abdomen pelvis without contrast HISTORY: Abdominal pain TECHNIQUE: Axial noncontrast images with coronal and sagittal reformats. Dose reduction procedures were used with mA/kv adjusted for body size. This examination is limited due to the lack of intravenous and oral contrast. The examination was performed without contrast at the SOLE DIRECTION of the ordering caregiver. Radiology was afforded NO input into the method of performance of this examination. COMPARISON: 03/09/2022 FINDINGS: Lung bases are clear. Liver, spleen, adrenal glands, and pancreas are within normal limits but only to the limitations of an unenhanced examination. No opaque stones visible in a somewhat contracted gallbladder. Kidneys are unobstructed and without stones. No ureteral calculi are identified. Abdominal aorta is normal in caliber with only minimal calcific atherosclerotic change. There is a CAVAL FILTER in place. No enlarged intraperitoneal or retroperitoneal lymphadenopathy is identified. There is increased attenuation in the fat at the root of the small bowel mesentery which is a finding that can be seen in both acute and chronic mesenteritis (mesenteric panniculitis) which is a nonspecific inflammatory process. It is unchanged from the prior examination. Patient is status post partial small-bowel resection with an anastomosis in the right lower quadrant anteriorly. There has been interval development since the prior examination of a 7.7 by 10.6 x 5.7 cm right lower quadrant ventral hernia which contains mesenteric fat and dilated fluid-filled small bowel. Proximal to the hernia there is dilatation of the proximal small bowel to a maximum diameter of 4.6 cm. Some of this dilatation is likely due to a mild chronic obstruction at the anastomosis however there appears to be superi mposed obstruction caused by the ventral hernia. There is some induration in the fat proximal to and within the hernia suggestive of edema which may indicate early changes of strangulation. This is best visualized on coronal series 5, image 14 and sagittal series 6 image 65. Incarceration not excluded. Immediate surgical evaluation is recommended. Appendix is not identified. There are no secondary signs of appendicitis present. There are no findings suggestive of colitis or diverticulitis. Diffuse diverticulosis coli identified. No pelvic masses, pelvic fluid, or pelvic lymphadenopathy is identified. No bladder abnormality is identified. Prostate gland is enlarged. No lytic or blastic s keletal lesions of significance identified. IMPRESSION: Postsurgical changes as above Interval development since the prior examination of a right lower quadrant ventral hernia containing mesenteric fat and dilated fluid-filled small bowel. Proximal to the hernia there is marked dilatation of the proximal small bowel up to a maximum diameter of 4.6 cm. This is partially chronic likely due to a slightly tight anastomosis however there is a superimposed acute small-bowel obstruction caused by the presence of small bowel within the hernia. There is some induration in the fat proximal to and within the hernia suggestive of edema which may indicate early changes of strangulation. Incarceration not excluded. Immediate surgical evaluation is recommended. Increased attenuation in the fat of the small bowel mesentery which can be seen in both acute and chronic mesenteritis (mesenteric panniculitis) which is a nonspecific inflammatory process. This finding is unchanged from the prior examination. CAVAL FILTER in place THIS IS AN ELECTRONICALLY VERIFIED FINAL REPORT 10/31/2025 9:20 AM - Electronically signed by Pedro Salmon MD
--- NOTE | 2025-10-31 09:25 | RAD ---
EXAMINATION: CHEST, 1 VIEW HISTORY: ABD PAIN/CHEST PAIN; . COMPARISON STUDY: Chest x-ray 04/07/2022 TECHNIQUE: Single frontal view of the chest FINDINGS: The lungs are expanded. Nonspecific streaky bibasilar opacities. Borderline cardiac silhouette enlargement. Normal pulmonary vascular pattern. Mild tortuosity thoracic aorta. CP angles are sharp. Bones are intact. IMPRESSION: Nonspecific streaky bibasilar opacities. Borderline cardiac silhouette enlargement with tortuosity thoracic aorta. THIS IS AN ELECTRONICALLY VERIFIED FINAL REPORT 10/31/2025 9:22 AM - Electronically signed by Portia Ferguson MD
[2025-10-31] MEDS ORDERED: NS 250 ML IV 25 ML IV PRN (09:33)
--- NOTE | 2025-10-31 09:33 | DR.N/VMALE ---
HPI Time Seen Time Seen by Provider: 10/31/25 07:44 Primary Care Physician Primary Care Physician: Retirement Complaints Chief Complaint Doctors Comments: Patient with complaint of right lower quadrant pain with history of hernia umbilical area which she states has increased in size drastically overnight. Patient started having nausea and vomiting at midnight. No fever. Chief Complaint:: Patient complains of hernia with pain to RLQ which increased in size overnight. He states he began having nausea and vomiting around 0000 hrs. Retirement staff report unable to reduce in their medical COVID-19 Coronavirus risk:travel/contact w/high risk person: No Has patient experienced Coronavirus symptoms: No Source History Provided: Patient Mode of Arrival Mode of Arrival: Wheelchair Timing Onset of Chief Complaint: 10/31/25 PMH PMH Past Medical History: Yes Past Medical History: Hypertension Past Surgical History: Yes Surgical History: Abdominal Surgery and Bowel Resection Family History History of Family Medical Conditions: Yes Family Medical History: Cancer, [place] and Coronary Artery Disease Social History Does patient currently use any type of tobacco product: No Have you used tobacco products in the last 12 months: No Type of Tobacco Use: None Does any household member use tobacco: No Alcohol Use: None Do you use any recreational Drugs:: No Lives With: Other Lives Where: group home x 35 years Travel Risk Coronavirus risk:travel/contact w/high risk person: No Has patient experienced Coronavirus symptoms: No Infectious screening In the last 2 months have you had wt loss of >10#?: NO Have you had fever, night sweats or hemotysis?: No Have you traveled outside the country in the last 6 months?: No Isolation: Standard ROS Review of Systems Constitutional: No Symptoms Reported Eyes: No Symptoms Reported ENTM: No Symptoms Reported Respiratoy: No Symptoms Reported Cardiovascular: No Symptoms Reported Gastrointestinal/Abdominal: See HPI Genitourinary: No Symptoms Reported Neurological: No Symptoms Reported Musculoskeletal: No Symptoms Reported Integumentary: No Symptoms Reported Hematologic/Lymphatic: No Symptoms Reported Endocrine: No Symptoms Reported Psychiatric: No Symptoms Reported All Other Systems: Reviewed and Negative PE Vital Signs Vitals: Vital Signs Temperature 98 F Pulse Rate 66 Respiratory Rate 18 Blood Pressure 135/79 Blood Pressure 145/77 O2 Sat by Pulse Oximetry 95 General Limitations: No Limitations General Appearance: Alert and In No Apparent Distress Head Head Exam: Normal Inspection Eyes Eye exam: Normal Appearance ENT ENT Exam: Normal Exam Neck Neck Exam: Normal Inspection Chest Chest Inspection: Normal Inspection Respiratory Respiratory Exam: Normal Lung Sounds Bilat Respiratory Exam: Bilateral: Clear to Auscultation Cardiovascular Cardiovascular Exam: Regular Rate and Normal Rhythm Abdominal Exam Abdominal Exam: Normal Bowel Sounds, Soft, Tenderness (Right lower quadrant) and Hernia (Incarcerated right lower quadrant hernia); negative Distention, Guarding, Rebound, Rigidity, Organomegaly or Ascites Rectal Rectal Exam: Deferred Exam: Male: Deferred Extremities Extremities Exam: Normal Inspection Back Back Exam: Normal Inspection Neurologic Neurological Exam: Alert and Oriented X3 Psychiatric Psychiatric Exam: Normal Affect and Normal Mood Skin Skin Exam: Warm, Dry, Intact and Normal Color COURSE Treatment Treatment: Discussed results of workup with patient. Patient agreeable to admission. Consultation Consultation Comments: Discussed case with surgeon, Dr. Alexandra, and he is agreeable to admission. Dr. Alexandra has already seen the patient while in the ER. Critical Care Notes Total Time (mins): 32 Critical Diagnosis: Incarcerated hernia with small bowel obstruction Critical Interventions: Time spent examining patient, ordering and interpreting results of workup. Time spent educating patient and coordinating care with specialist. Patient given fluids, antibiotic. ROR Labs Reviewed Laboratory Results Reviewed?: Yes 10/31/25 07:53 10/31/25 07:53 Laboratory: WBC 8.2 X10^3/uL (3.6-10.0) 10/31/25 07:53 RBC 5.07 X10^6/uL (4.7-6.0) 10/31/25 07:53 Hgb 15.5 g/dL (13.5-18.0) 10/31/25 07:53 Hct 45.2 % (42.0-54.0) 10/31/25 07:53 MCV 89.2 fL (80.0-100.0) 10/31/25 07:53 MCH 30.5 pg (27.0-34.0) 10/31/25 07:53 MCHC 34.2 g/dL (33.0-35.0) 10/31/25 07:53 RDW 14.4 % (11.6-16.5) 10/31/25 07:53 Plt Count 327 X10^3/uL (150.0-450.0) 10/31/25 07:53 MPV 7.1 fL (7.4-11.0) L 10/31/25 07:53 Neut % (Auto) 74.7 % (42.0-75.0) 10/31/25 07:53 Lymph % (Auto) 16.1 % (21.0-51.0) L 10/31/25 07:53 [place] % (Auto) 8.2 % (0.0-13.0) 10/31/25 07:53 Eos % (Auto) 0.4 % (0.9-2.9) L 10/31/25 07:53 Baso % (Auto) 0.6 % (0.2-1.0) 10/31/25 07:53 Neut # (Auto) 6.1 x10^3/uL (2.2-4.8) H 10/31/25 07:53 Lymph # (Auto) 1.3 X10^3/uL (1.3-2.9) 10/31/25 07:53 [place] # (Auto) 0.7 x10^3/uL (0.3-0.8) 10/31/25 07:53 Eos # (Auto) 0.0 x10^3/uL (0.0-0.2) 10/31/25 07:53 Baso # (Auto) 0.0 X10^3/uL (0.0-0.1) 10/31/25 07:53 Absolute Nucleated RBC 0.0 /100WBC 10/31/25 07:53 PT 13.6 SECONDS (11.8-14.3) 10/31/25 07:53 INR Target Range - 10/31/25 07:53 INR 1.02 (0.8-1.3) 10/31/25 07:53 APTT 27.8 SECONDS (22.9-36.5) 10/31/25 07:53 PTT Comment - 10/31/25 07:53 Sodium 141 mmol/L (136-145) 10/31/25 07:53 Corrected Sodium 142 mmol/L (136-145) 10/31/25 07:53 Potassium 4.2 mmol/L (3.5-5.1) 10/31/25 07:53 Chloride 101 mmol/L (98-107) 10/31/25 07:53 Carbon Dioxide 34.9 mmol/L (21-32) H 10/31/25 07:53 BUN 11 mg/dL (7-18) 10/31/25 07:53 Creatinine 0.98 mg/dL (0.70-1.30) 10/31/25 07:53 Est GFR (MDRD) Af Amer > 60 (>60) 10/31/25 07:53 Est GFR (MDRD) Non-Af > 60 (>60) 10/31/25 07:53 Glucose 138 mg/dL (65-99) H 10/31/25 07:53 Calcium 9.1 mg/dL (8.5-10.1) 10/31/25 07:53 Corrected Calcium TNP 10/31/25 07:53 Total Bilirubin 0.60 mg/dL (0.2-1.0) 10/31/25 07:53 AST 18 Units/L (15-37) 10/31/25 07:53 ALT 29 Units/L (12-78) 10/31/25 07:53 Alkaline Phosphatase 79 Units/L (46-116) 10/31/25 07:53 Total Protein 7.8 g/dL (6.4-8.2) 10/31/25 07:53 Albumin 4.0 g/dL (3.4-5.0) 10/31/25 07:53 Globulin 3.8 g/dL (2.5-4.5) 10/31/25 07:53 Albumin/Globulin Ratio 1.1 Ratio (1.1-2.1) 10/31/25 07:53 Amylase 50 Units/L (25-115) 10/31/25 07:53 Lipase 18 Units/L (16-77) 10/31/25 07:53 Other Results Comments: Name: Feliciano Valiente [facility]#: [id number] : 1955 Sex: M Location: ER Order Number(s): [id number] Procedure(s):CT ABDOMEN/PELVIS W/O CON Ordering Physician: Yann Burgess Primary Care: NFD,None Service Date: 10/31/25 Service Time: 0744 EXAM: CT abdomen pelvis without contrast HISTORY: Abdominal pain TECHNIQUE: Axial noncontrast images with coronal and sagittal reformats. Dose reduction procedures were used with mA/kv adjusted for body size. This examination is limited due to the lack of intravenous and oral contrast. The examination was performed without contrast at the SOLE DIRECTION of the ordering caregiver. Radiology was afforded NO input into the method of performance of this examination. COMPARISON: 03/09/2022 FINDINGS: Lung bases are clear. Liver, spleen, adrenal glands, and pancreas are within normal limits but only to the limitations of an unenhanced examination. No opaque stones visible in a somewhat contracted gallbladder. Kidneys are unobstructed and without stones. No ureteral calculi are identified. Abdominal aorta is normal in caliber with only minimal calcific atherosclerotic change. There is a CAVAL FILTER in place. No enlarged intraperitoneal or retroperitoneal lymphadenopathy is identified. There is increased attenuation in the fat at the root of the small bowel mesentery which is a finding that can be seen in both acute and chronic mesenteritis (mesenteric panniculitis) which is a nonspecific inflammatory process. It is unchanged from the prior examination. Patient is status post partial small-bowel resection with an anastomosis in the right lower quadrant anteriorly. There has been interval development since the prior examination of a 7.7 by 10.6 x 5.7 cm right lower quadrant ventral hernia which contains mesenteric fat and dilated fluid-filled small bowel. Proximal to the hernia there is dilatation of the proximal small bowel to a maximum diameter of 4.6 cm. Some of this dilatation is likely due to a mild chronic obstruction at the anastomosis however there appears to be superimposed obstruction caused by the ventral hernia. There is some induration in the fat proximal to and within the hernia suggestive of edema which may indicate early changes of strangulation. This is best visualized on coronal series 5, image 14 and sagittal series 6 image 65. Incarceration not excluded. Immediate surgical evaluation is recommended. Appendix is not identified. There are no secondary signs of appendicitis present. There are no findings suggestive of colitis or diverticulitis. Diffuse diverticulosis coli identified. No pelvic masses, pelvic fluid, or pelvic lymphadenopathy is identified. No bladder abnormality is identified. Prostate gland is enlarged. No lytic or blastic skeletal lesions of significance identified. IMPRESSION: Postsurgical changes as above Interval development since the prior examination of a right lower quadrant ventral hernia containing mesenteric fat and dilated fluid-filled small bowel. Proximal to the hernia there is marked dilatation of the proximal small bowel up to a maximum diameter of 4.6 cm. This is partially chronic likely due to a slightly tight anastomosis however there is a superimposed acute small-bowel obstruction caused by the presence of small bowel within the hernia. There is some induration in the fat proximal to and within the hernia suggestive of edema which may indicate early changes of strangulation. Incarceration not excluded. Immediate surgical evaluation is recommended. Increased attenuation in the fat of the small bowel mesentery which can be seen in both acute and chronic mesenteritis (mesenteric panniculitis) which is a nonspecific inflammatory process. This finding is unchanged from the prior examination. CAVAL FILTER in place THIS IS AN ELECTRONICALLY VERIFIED FINAL REPORT 10/31/2025 9:20 AM - Electronically signed by Pedro Salmon MD XRAY X-ray Results: Name: Feliciano Valiente : 1955 Sex: M Location: ER Order Number(s): [id number] Procedure(s):CHEST, 1 VIEW X-RAY Ordering Physician: Yann Burgess Primary Care: Martin HERBERT Service Date: 10/31/25 Service Time: 845 EXAMINATION: CHEST, 1 VIEW HISTORY: ABD PAIN/CHEST PAIN; . COMPARISON STUDY: Chest x-ray 04/07/2022 TECHNIQUE: Single frontal view of the chest FINDINGS: The lungs are expanded. Nonspecific streaky bibasilar opacities. Borderline cardiac silhouette enlargement. Normal pulmonary vascular pattern. Mild tortuosity thoracic aorta. CP angles are sharp. Bones are intact. IMPRESSION: Nonspecific streaky bibasilar opacities. Borderline cardiac silhouette enlargement with tortuosity thoracic aorta. THIS IS AN ELECTRONICALLY VERIFIED FINAL REPORT 10/31/2025 9:22 AM - Electronically signed by Portia Ferguson MD EKG Rate: 58 [place]: Normal Rhythm: SB Block: None Hypertrophy: None ST: Normal Opioid Opioid Risk Tool Age (Maxi box if 16-45): No History of Preadolescent Sexual Abuse: No Total: 0 Total Score Risk Category: Low Risk Copyright: Roderick TORRES predicting aberrant behaviors Discharge Plan Diagnosis Discharge Problem: Small bowel obstruction, Incarcerated hernia Discharge Plan Patient Disposition: ADMITTED INPATIENT Condition: Stable Prescriptions: No Action polyethylene glycol 3350 [Miralax] 17 gram Powder In Packet 17 g PO DAILY promethazine 25 mg Tablet 25 mg PO DAILY PRN (Reason: Nausea) fiber Tablet 1 tab PO BID Rx Instructions: 625 MG PO BID hydrochlorothiazide 12.5 mg Tablet 12.5 mg PO DAILY potassium chloride 40 mEq/15 mL Liquid 40 meq PO ONCE Qty: 30 0RF pantoprazole [Protonix] 40 mg Tablet,Delayed Release (Dr/Ec) 40 mg PO ONCE Qty: 30 0RF ciprofloxacin HCl [Cipro] 500 mg Tablet 500 mg PO BID Qty: 60 0RF Health Concerns: Post Hospitalization: new medications and changes needed to prevent readmission or further decline. Pt educated and given instructions on all concerns. Plan of Treatment: Continue with present treatment and follow up plan. Pt is to keep follow up appointment as instructed and take medications as ordered. Orders to Discharge Patient Discharge Orders: Transfer (Routine); Ordered 10/31/25 Ordered By: Yann Burgess Follow ups/Referrals Follow ups/Referrals: NFD,None [Primary Care Provider] - 3 days Instructions Stand Alone Forms: Find Help Web Site, Post Hospital Follow Up Care Print Language: [id number]
[2025-10-31] MEDS: NS 500 ML IV 500 ML IV ONE (10:01)
[2025-10-31] MEDS: ZOSYN VIAL 3.375 GRAMS 3.375 G in NS 100 ML IV 100 ML IV ONE (10:01)
[2025-10-31 10:16] LABS: BLOOD/HEMOGLOBIN,URINE NEGATIVE (NEGATIVE); LEUKOCYTE ESTERASE ,URINE NEGATIVE (NEGATIVE); NITRITES,URINE NEGATIVE (NEGATIVE)
[2025-10-31 10:23] LABS: APPEARANCE,URINE CLEAR (CLEAR)
[2025-10-31 10:26] LABS: SQUAMOUS EPITHELIAL CELL,UR RARE /HPF (NEGATIVE)
[2025-10-31] MEDS ORDERED: CONSULT PHARMACY - POTASSIUM & MAGNESIUM XX SCH (10:28)
[2025-10-31] MEDS: NS 1,000 ML IV 1,000 ML IV SCH (10:58)
[2025-10-31] MEDS: MORPHINE SULFATE INJ 2 MG INJ IVP PRN (11:01)
[2025-10-31 11:04] VITALS: BMI 32.5
[2025-10-31] MEDS: ZOFRAN INJ 4 MG VIAL IVP PRN (14:46)
[2025-10-31] MEDS: ZOSYN VIAL 3.375 GRAMS 3.375 G in NS 100 ML IV 100 ML IV SCH (21:19)
[2025-11-01 05:40] LABS: MEAN PLATELET VOLUME 7.2 fL (7.4-11.0); RED CELL DISTRIBUTION WIDTH 14.1 % (11.6-16.5)
[2025-11-01 05:50] LABS: COR CA(FOR HYPOALB) 8.9 mg/dL (8.5-10.1); CREATININE 0.91 mg/dL (0.70-1.30); eGFR NON BLACK RACES > 60 (>60)
--- NOTE | 2025-11-01 08:16 | RAD ---
EXAM: KUB HISTORY: OBSTRUCTION; OBSTRUCTION COMPARISON: 04/06/2022 FINDINGS: the lower abdomen. No evidence of pneumoperitoneum. No pathologic soft tissue calcification. No acute osseous abnormality. IVC filter. IMPRESSION: Distended small bowel loops in the lower abdomen which could be seen with ileus or obstruction. Continued follow-up recommended. THIS IS AN ELECTRONICALLY VERIFIED FINAL REPORT 11/01/2025 8:13 AM - Electronically signed by Pedro Salmon MD
--- NOTE | 2025-11-01 09:54 | DR.CONSULT ---
CONSULT Consultation for Day of: Date: 11/01/25 Chief Complaint Chief Complaint: abdominal pain Allergies Allergies Allergy/AdvReac Type Severity Reaction Status Date / Time No Known Drug Allergies Allergy Unknown Unverified 01/28/22 14:54 History of Present Illness History of Present Illness: Patient is a 70-year-old male who presented from the presented with worsening abdominal pain, nausea and vomiting. He reports being sick for the last 3 days. He does have a history of multiple abdominal surgeries including hernia repair. ER workup included labs which did not show any pertinent findings. CTAP was concerning for strangulation of right lower quadrant ventral hernia along with superimposed acute small bowel obstruction. It also showed subacute or chronic present thyroiditis. Surgery was consulted. Patient was started on IV fluids, pain control and antibiotics. Medicine was consulted. Patient is doing better this morning. He states his pain has improved. He has not had any nausea or vomiting. His last bowel movement was 3 days ago. Labs/imaging reviewed: - WBC 6.6 hemoglobin 14.2 potassium 4.2 creatinine 0.91 - KUB reviewed ileus versus obstruction Plan: Follow surgery recommendations. Follow KUB results. Advance diet to soft diet. Continue antibiotics, fluids and pain control. Replace electrolytes as per protocol. Patient denies cardiac hx. He might need surgery as outpatient. Echo and PFTs for clearance. Past Medical History Past Medical History: Hypertension Past Surgical History Surgical History: Abdominal Surgery and Bowel Resection Family History Family Medical History: Cancer, [place] and Coronary Artery Disease Social History Does patient currently use any type of tobacco product: No Have you used tobacco products in the last 12 months: No Type of Tobacco Use: None Does any household member use tobacco: No Alcohol Use: None Drug Use: None Medications Home Medications: No Known Drug Allergies Allergy (Unknown, Unverified 01/28/22 14:54) CONTINUE taking the following medications hydrocortisone 1 % topical ointment 1 applic topical BID 10/31/25 [History] Review of Systems Constitutional: No Symptoms Reported Eyes: No Symptoms Reported ENT: No Symptoms Reported Respiratory: No Symptoms Reported Cardiovascular: No Symptoms Reported Gastrointestinal: Nausea, Vomiting, Abdominal Pain and Constipation Genitourinary: No Symptoms Reported Musculoskeletal: No Symptoms Reported Skin: No Symptoms Reported Neurological: No Symptoms Reported Physical Exam Vital Signs: Vital Signs Temperature 97.7 F Pulse Rate [Radial] 55 Respiratory Rate 18 Respiratory Rate 18 Respiratory Rate 18 Respiratory Rate 18 Blood Pressure [Right Arm] 127/73 O2 Sat by Pulse Oximetry 96 Oriented: Normal Respiratory: Diminished Throughout Cardiovascular: Normal Auscultation: Bowel Sounds: Decreased Tenderness: RLQ, Periumbilical and Mild Skin: Normal Musculoskeletal: Normal Psychiatric: Normal Mood Description: Calm Affect: Normal Speech Pattern: Clear and Appropriate
--- NOTE | 2025-11-01 10:42 | DR.PROGNOT ---
HOSPITAL PROGRESS NOTE Progress Note for Day of: Progress Note Date: 11/01/25 Chief Complaint Chief Complaint: Still complaining of moderate abdominal pain, no nausea or vomiting, no bowel movement yet but passing flatus. -Small bulge in the right lower quadrant KUB showed dilated small bowel loops in the lower abdomen which could be ileus or partial small bowel obstruction. White count is 6.6, hemoglobin is 14.2, BUN/creatinine are normal as well as the electrolytes, bilirubin and liver function tests are normal. Patient is afebrile and seems to be comfortable. Abdomen is soft and flat with mild tenderness around the right lower quadrant incisional hernia, patient has several hernias on the lower midline. The right lower quadrant ventral hernia is partially reducible. Patient needs cardiopulmonary evaluation which could be done as an outpatient and arrange for future surgery. Will advance diet to see if he is tolerating and then he could be discharged. The rest of his systemic review is the same as before. Past Medical Family Social History Allergies: Allergies No Known Drug Allergies Allergy (Unknown, Unverified 01/28/22 14:54) Onset Date: 01/28/2022 Vital Signs Vital Signs: Vital Signs Temperature 97.6 F Temperature 97.7 F Pulse Rate [Radial] 55 Pulse Rate [Radial] 55 Respiratory Rate 18 Respiratory Rate 20 Respiratory Rate 18 Respiratory Rate 18 Respiratory Rate 18 Blood Pressure [Right Arm] 157/75 Blood Pressure [Right Arm] 127/73 O2 Sat by Pulse Oximetry 97 O2 Sat by Pulse Oximetry 96 Physical Exam Oriented: Normal Eyes: Normal Ear: Normal Nose: Normal Throat: Normal Respiratory: Normal GI: Tenderness: Other (Right lower quadrant with multiple defects on the abdominal wall and subsequent incisional hernias.) Skin: Normal Musculoskeletal: Normal Psychiatric: Normal Mood Description: Calm Affect: Normal Speech Pattern: Clear and Appropriate Laboratory and Diagnostics 11/01/25 05:14 11/01/25 05:14 Labs: Laboratory WBC 6.6 X10^3/uL (3.6-10.0) 11/01/25 05:14 RBC 4.68 X10^6/uL (4.7-6.0) L 11/01/25 05:14 Hgb 14.2 g/dL (13.5-18.0) 11/01/25 05:14 Hct 41.7 % (42.0-54.0) L 11/01/25 05:14 MCV 89.0 fL (80.0-100.0) 11/01/25 05:14 MCH 30.3 pg (27.0-34.0) 11/01/25 05:14 MCHC 34.0 g/dL (33.0-35.0) 11/01/25 05:14 RDW 14.1 % (11.6-16.5) 11/01/25 05:14 Plt Count 283 X10^3/uL (150.0-450.0) 11/01/25 05:14 MPV 7.2 fL (7.4-11.0) L 11/01/25 05:14 Neut % (Auto) 65.6 % (42.0-75.0) 11/01/25 05:14 Lymph % (Auto) 22.3 % (21.0-51.0) 11/01/25 05:14 [place] % (Auto) 9.9 % (0.0-13.0) 11/01/25 05:14 Eos % (Auto) 1.6 % (0.9-2.9) 11/01/25 05:14 Baso % (Auto) 0.6 % (0.2-1.0) 11/01/25 05:14 Neut # (Auto) 4.3 x10^3/uL (2.2-4.8) 11/01/25 05:14 Lymph # (Auto) 1.5 X10^3/uL (1.3-2.9) 11/01/25 05:14 [place] # (Auto) 0.7 x10^3/uL (0.3-0.8) 11/01/25 05:14 Eos # (Auto) 0.1 x10^3/uL (0.0-0.2) 11/01/25 05:14 Baso # (Auto) 0.0 X10^3/uL (0.0-0.1) 11/01/25 05:14 Absolute Nucleated RBC 0.1 /100WBC 11/01/25 05:14 PT 13.6 SECONDS (11.8-14.3) 10/31/25 07:53 INR Target Range - 10/31/25 07:53 INR 1.02 (0.8-1.3) 10/31/25 07:53 APTT 27.8 SECONDS (22.9-36.5) 10/31/25 07:53 PTT Comment - 10/31/25 07:53 Sodium 142 mmol/L (136-145) 11/01/25 05:14 Corrected Sodium TNP 11/01/25 05:14 Potassium 4.2 mmol/L (3.5-5.1) 11/01/25 05:14 Chloride 106 mmol/L (98-107) 11/01/25 05:14 Carbon Dioxide 29.9 mmol/L (21-32) 11/01/25 05:14 BUN 8 mg/dL (7-18) 11/01/25 05:14 Creatinine 0.91 mg/dL (0.70-1.30) 11/01/25 05:14 Est GFR (MDRD) Af Amer > 60 (>60) 11/01/25 05:14 Est GFR (MDRD) Non-Af > 60 (>60) 11/01/25 05:14 Glucose 106 mg/dL (65-99) H 11/01/25 05:14 Calcium 8.3 mg/dL (8.5-10.1) L 11/01/25 05:14 Corrected Calcium 8.9 mg/dL (8.5-10.1) 11/01/25 05:14 Total Bilirubin 0.80 mg/dL (0.2-1.0) 11/01/25 05:14 AST 16 Units/L (15-37) 11/01/25 05:14 ALT 23 Units/L (12-78) 11/01/25 05:14 Alkaline Phosphatase 67 Units/L (46-116) 11/01/25 05:14 Total Protein 6.5 g/dL (6.4-8.2) 11/01/25 05:14 Albumin 3.2 g/dL (3.4-5.0) L 11/01/25 05:14 Globulin 3.3 g/dL (2.5-4.5) 11/01/25 05:14 Albumin/Globulin Ratio 1.0 Ratio (1.1-2.1) L 11/01/25 05:14 Amylase 50 Units/L (25-115) 10/31/25 07:53 Lipase 18 Units/L (16-77) 10/31/25 07:53 Specimen Type Clean catch urine 10/31/25 10:06 Urine Color Yellow (YELLOW) 10/31/25 10:06 Urine Appearance Clear (CLEAR) 10/31/25 10:06 Urine pH 8.0 (5.0 - 8.0) 10/31/25 10:06 Ur Specific [place] 1.015 (1.000-1.030) 10/31/25 10:06 Urine Protein 1+ (NEGATIVE) 10/31/25 10:06 Urine Glucose (UA) Negative (NEGATIVE) 10/31/25 10:06 Urine Ketones Negative (NEGATIVE) 10/31/25 10:06 Urine Blood Negative (NEGATIVE) 10/31/25 10:06 Urine Nitrite Negative (NEGATIVE) 10/31/25 10:06 Urine Bilirubin Negative (NEGATIVE) 10/31/25 10:06 Urine Urobilinogen Normal (NORMAL) 10/31/25 10:06 Ur Leukocyte Esterase Negative (NEGATIVE) 10/31/25 10:06 Urine RBC None seen /HPF (0-3) 10/31/25 10:06 Urine WBC None seen /HPF (0-5) 10/31/25 10:06 Ur Squamous Epith Cells Rare /HPF (NEGATIVE) 10/31/25 10:06 Amorphous Sediment Trace /HPF (NEGATIVE) 10/31/25 10:06 Urine Bacteria Negative /HPF (NEGATIVE) 10/31/25 10:06 Ur Culture Indicated? No/not indicated 10/31/25 10:06 Assessment and Plan 1: Multiple incisional hernias mainly right lower quadrant with partially reducible hernia. Measuring more than 4 cm To obtain pulmonary function test as an outpatient, echocardiogram today. Sickle consultation and clearance for future surgery. Will advance his diet, if it is tolerated we will discharge the patient and follow him in the office. The findings and the plan was discussed with the patient in details. Problem Patient Problems: Patient Problems Incarcerated hernia (Acute) K46.0 Small bowel obstruction (Acute) K56.602
[2025-11-01] MEDS: PERCOCET TAB 5/325 MG PO PRN (11:42)
--- NOTE | 2025-11-01 12:22 | RAD ---
EXAM: KUB HISTORY: sbo; COMPARISON: 10/31/2025 TECHNIQUE: AP, supine FINDINGS: Prominent air-filled small and large bowel loops throughout the abdomen. Mild rectal stool burden. No abnormal calcifications. IVC filter in place. IMPRESSION: Mildly prominent air-filled small and large bowel loops is favored to represent ileus. Partial small bowel obstruction is considered less likely but difficult to exclude. THIS IS AN ELECTRONICALLY VERIFIED FINAL REPORT 11/01/2025 12:08 PM - Electronically signed by Dieter Gonzalez MD
[2025-11-01] MEDS: NS 250 ML IV 25 ML IV PRN (22:10)
[2025-11-02 05:27] LABS: MEAN PLATELET VOLUME 7.1 fL (7.4-11.0); RED CELL DISTRIBUTION WIDTH 14.3 % (11.6-16.5)
[2025-11-02 05:35] LABS: COR CA(FOR HYPOALB) 8.7 mg/dL (8.5-10.1); CREATININE 0.92 mg/dL (0.70-1.30); eGFR NON BLACK RACES > 60 (>60)
--- NOTE | 2025-11-02 09:23 | PCM.PROG ---
Progress Note Progress Note for Day of Date of Exam: 11/02/25 Subjective Subjective: Patient is a 70-year-old male admitted for small bowel obstruction. He has multiple incisional hernias mainly right lower quadrant with partially reducible hernia. He will need surgery outpatient. This morning he is doing well. No acute events overnight. Labs: WBC 5.8, hemoglobin 13.8, platelets 264, sodium 143, potassium 3.9, creatinine 0.92, glucose 104. Echo ejection fraction 65%. His diet has been advanced and he is tolerating it well. He is otherwise medically stable and surgery plans to discharge today with follow-up outpatient. Medicine signing off. Past Medical Family Social History Allergies: Allergies No Known Drug Allergies Allergy (Unknown, Unverified 01/28/22 14:54) Onset Date: 01/28/2022 Review of Systems ROS changes noted: see HPI Vital Signs and I&O's Vital Signs: Vital Signs Temperature 98.2 F Pulse Rate [Radial] 55 Respiratory Rate 16 Respiratory Rate 20 Blood Pressure [Right Arm] 132/80 O2 Sat by Pulse Oximetry 94 Intake and Output: Intake & Output 10/30/25 10/31/25 11/01/25 11/02/25 23:59 23:59 23:59 23:59 Intake Total 446 / 446 4451 / 4451 570 / 570 Output Total 875 / 875 1700 / 1700 220 / 220 Balance -429 / -429 2751 / 2751 350 / 350 Physical Exam Oriented: Normal Eyes: Normal Ear: Normal Nose: Normal Throat: Normal Respiratory: Normal Cardiovascular: Normal Auscultation: Bowel Sounds: Normal Tenderness: Other (Right lower quadrant with multiple defects on the abdominal wall and subsequent incisional hernias.) Skin: Normal Musculoskeletal: Normal Psychiatric: Normal Mood Description: Calm Affect: Normal Speech Pattern: Clear and Appropriate Laboratory and Diagnostics 11/02/25 05:10 11/02/25 05:10 Labs: Laboratory WBC 5.8 X10^3/uL (3.6-10.0) 11/02/25 05:10 RBC 4.62 X10^6/uL (4.7-6.0) L 11/02/25 05:10 Hgb 13.8 g/dL (13.5-18.0) 11/02/25 05:10 Hct 41.1 % (42.0-54.0) L 11/02/25 05:10 MCV 89.0 fL (80.0-100.0) 11/02/25 05:10 MCH 29.8 pg (27.0-34.0) 11/02/25 05:10 MCHC 33.5 g/dL (33.0-35.0) 11/02/25 05:10 RDW 14.3 % (11.6-16.5) 11/02/25 05:10 Plt Count 264 X10^3/uL (150.0-450.0) 11/02/25 05:10 MPV 7.1 fL (7.4-11.0) L 11/02/25 05:10 Neut % (Auto) 62.3 % (42.0-75.0) 11/02/25 05:10 Lymph % (Auto) 24.3 % (21.0-51.0) 11/02/25 05:10 Sanders % (Auto) 9.9 % (0.0-13.0) 11/02/25 05:10 Eos % (Auto) 2.7 % (0.9-2.9) 11/02/25 05:10 Baso % (Auto) 0.8 % (0.2-1.0) 11/02/25 05:10 Neut # (Auto) 3.6 x10^3/uL (2.2-4.8) 11/02/25 05:10 Lymph # (Auto) 1.4 X10^3/uL (1.3-2.9) 11/02/25 05:10 Sanders # (Auto) 0.6 x10^3/uL (0.3-0.8) 11/02/25 05:10 Eos # (Auto) 0.2 x10^3/uL (0.0-0.2) 11/02/25 05:10 Baso # (Auto) 0.0 X10^3/uL (0.0-0.1) 11/02/25 05:10 Absolute Nucleated RBC 0.1 /100WBC 11/02/25 05:10 PT 13.6 SECONDS (11.8-14.3) 10/31/25 07:53 INR Target Range - 10/31/25 07:53 INR 1.02 (0.8-1.3) 10/31/25 07:53 APTT 27.8 SECONDS (22.9-36.5) 10/31/25 07:53 PTT Comment - 10/31/25 07:53 Sodium 143 mmol/L (136-145) 11/02/25 05:10 Corrected Sodium TNP 11/02/25 05:10 Potassium 3.9 mmol/L (3.5-5.1) 11/02/25 05:10 Chloride 107 mmol/L (98-107) 11/02/25 05:10 Carbon Dioxide 28.6 mmol/L (21-32) 11/02/25 05:10 BUN 8 mg/dL (7-18) 11/02/25 05:10 Creatinine 0.92 mg/dL (0.70-1.30) 11/02/25 05:10 Est GFR (MDRD) Af Amer > 60 (>60) 11/02/25 05:10 Est GFR (MDRD) Non-Af > 60 (>60) 11/02/25 05:10 Glucose 104 mg/dL (65-99) H 11/02/25 05:10 Calcium 7.9 mg/dL (8.5-10.1) L 11/02/25 05:10 Corrected Calcium 8.7 mg/dL (8.5-10.1) 11/02/25 05:10 Total Bilirubin 0.50 mg/dL (0.2-1.0) 11/02/25 05:10 AST 9 Units/L (15-37) L 11/02/25 05:10 ALT 18 Units/L (12-78) 11/02/25 05:10 Alkaline Phosphatase 66 Units/L (46-116) 11/02/25 05:10 Total Protein 6.3 g/dL (6.4-8.2) L 11/02/25 05:10 Albumin 3.0 g/dL (3.4-5.0) L 11/02/25 05:10 Globulin 3.3 g/dL (2.5-4.5) 11/02/25 05:10 Albumin/Globulin Ratio 0.9 Ratio (1.1-2.1) L 11/02/25 05:10 Amylase 50 Units/L (25-115) 10/31/25 07:53 Lipase 18 Units/L (16-77) 10/31/25 07:53 Specimen Type Clean catch urine 10/31/25 10:06 Urine Color Yellow (YELLOW) 10/31/25 10:06 Urine Appearance Clear (CLEAR) 10/31/25 10:06 Urine pH 8.0 (5.0 - 8.0) 10/31/25 10:06 Ur Specific Mize 1.015 (1.000-1.030) 10/31/25 10:06 Urine Protein 1+ (NEGATIVE) 10/31/25 10:06 Urine Glucose (UA) Negative (NEGATIVE) 10/31/25 10:06 Urine Ketones Negative (NEGATIVE) 10/31/25 10:06 Urine Blood Negative (NEGATIVE) 10/31/25 10:06 Urine Nitrite Negative (NEGATIVE) 10/31/25 10:06 Urine Bilirubin Negative (NEGATIVE) 10/31/25 10:06 Urine Urobilinogen Normal (NORMAL) 10/31/25 10:06 Ur Leukocyte Esterase Negative (NEGATIVE) 10/31/25 10:06 Urine RBC None seen /HPF (0-3) 10/31/25 10:06 Urine WBC None seen /HPF (0-5) 10/31/25 10:06 Ur Squamous Epith Cells Rare /HPF (NEGATIVE) 10/31/25 10:06 Amorphous Sediment Trace /HPF (NEGATIVE) 10/31/25 10:06 Urine Bacteria Negative /HPF (NEGATIVE) 10/31/25 10:06 Ur Culture Indicated? No/not indicated 10/31/25 10:06 Plan (1) Small bowel obstruction: Status: Acute (2) Incarcerated hernia: Status: Acute (3) Nausea & vomiting: Status: Acute Qualifiers: Vomiting type: unspecified Qualified Code(s): R11.2 - Nausea with vomiting, unspecified
[2025-11-02 11:56] VITALS: RESP 18
[2025-11-02 13:23] VITALS: BP 155/75; PULSE 69; TEMP 98; O2SAT 95
--- NOTE | 2025-11-03 13:25 | RAD ---
EXAM: KUB HISTORY: BOWEL OBSTRUCTION ; COMPARISON: 11/01/2025 TECHNIQUE: AP FINDINGS: Air-filled loops of small and large bowel throughout the abdomen, similar to comparison. IVC filter in place. No abnormal calcifications. IMPRESSION: Similar air-filled small and large bowel loops throughout the abdomen. THIS IS AN ELECTRONICALLY VERIFIED FINAL REPORT 11/03/2025 1:21 PM - Electronically signed by Dieter Gonzalez MD
== END 2025-11-02 13:10 | disposition home or self-care (01) | DRG 389 ==
LOC: ER 07:38 → MED/SURG 09:39
PROVIDERS: ADMIT Surgery; ATTEND Surgery
DX: R05.8 Other specified cough; Z98.890 Other specified postprocedural states; R00.1 Bradycardia, unspecified; Z68.33 Body mass index [BMI] 33.0-33.9, adult; K59.09 Other constipation; R07.89 Other chest pain; I10 Essential (primary) hypertension; K43.6 Other and unspecified ventral hernia with obstruction, without gangrene; R79.89 Other specified abnormal findings of blood chemistry; R10.31 Right lower quadrant pain; Z01.810 Encounter for preprocedural cardiovascular examination; E66.01 Morbid (severe) obesity due to excess calories; R73.09 Other abnormal glucose; R11.2 Nausea with vomiting, unspecified; K56.690 Other partial intestinal obstruction